=== PATIENT | female | born 1965 | race Caucasian/White ===

== ENCOUNTER 2017-08-08 14:30 | Outpatient (CLI) | payer OTHER ==
--- NOTE | 2017-08-08 17:24 | MRI ---
MRI RIGHT WRIST WITHOUT CONTRAST 08/08/17 HISTORY: N54.12. Pain in wrist. COMPARISON: None available. FINDINGS: BONES: There is mild degenerative disease at the scaphotrapezium trapezoidal joint with subchondral cysts of the distal pole of the scaphoid. There is no acute fracture or malalignment. There is mild narrowing of the radiocarpal joints specifically at the lunate fossa. LIGAMENTS: The scapholunate and the lunotriquetral ligaments are intact. The intrinsic and extrinsic ligaments o f the wrist are intact. TENDONS: There is moderate tendinosis of the flexor carpi ulnaris at the pisiform insertion with distal muscul ar edema along the myotendinous junction. There is a longitudinal split tear of the extensor carpi ul naris without subluxation. Neurovascular bundles are intact. IMPRESSION: 1. 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 2. Moderate degeneration of the central articular disc triangular fibrocartilage without perfora tion. 3. Moderate tendinosis of the flexor carpi ulnaris at the pisiform insertion with myotendinous e davida of the abductor digiti minimi. 4. Small ganglion cyst at the volar aspect of the trapezium. 5. Mild cartilage loss of the radiocarpal joint at the lunate fossa. 6. No evidence of carpal instability. 7. Small subcortical cysts at the first and second metacarpal base indicating degenerative disea se. 8. Interstitial tear of the extensor carpi ulnaris at the ulnar groove. POS: [facility]
--- NOTE | 2017-08-08 17:37 | MRI ---
CERVICAL SPINE MRI NONCONTRAST 08/08/17 CLINICAL HISTORY: Neck pain with numbness. FINDINGS: There is mild multilevel end plate degenerative change with disc space narrowing. No high grade central canal stenosis at C1-2 or C2-3 levels. C3-4: There is disc osteophyte complex with mild narrowing of the central canal and moderate left for aminal narrowing. No high grade right foraminal stenosis. C4-5: There is mild narrowing of the central canal and mild bilateral neural foraminal narrowing as t he result of disc osteophyte complex. C5-6: There is broad based disc osteophyte with a central component effacing the ventral aspect of th e cervical spinal cord with mild narrowing and central canal. There is moderate left and mild right n eural foraminal narrowing. C6-7: Disc osteophyte complex present without high grade central canal or foraminal stenosis. C7-T1: No significant central canal or neural foraminal stenosis. Within limitations, there is no obvious cord signal abnormality although there is a degree of patient motion that limits assessment. Incidental note of partially empty sella. There is mild volume loss o f the imaged posterior fossa contents. IMPRESSION: Multilevel degenerative change of the cervical spine as outlined above. POS: [facility]
== END 2017-08-08 14:31 | disposition home or self-care (01) ==
LOC: SCSMRI 14:30
PROVIDERS: ATTEND Orthopaedic Surgery Hand Surgery
DX: M47.22 Other spondylosis with radiculopathy, cervical region (principal); M19.031 Primary osteoarthritis, right wrist; R60.0 Localized edema; M67.431 Ganglion, right wrist
CPT/HCPCS: 72141

== ENCOUNTER 2017-09-17 10:15 | Outpatient (CLI) | payer OTHER ==
[2017-09-17 14:28] LABS: Anion Gap 15 mmol/L (10-20); BUN (Urea Nitrogen) 16 mg/dL (9.8-20.1); Calc. Creatinine Clearance 0 mL/min (70-130); Calcium 9.8 mg/dL (7.8-10.44); Carbon Dioxide 26 mmol/L (22-29); Chloride 104 mmol/L (98-107); Estimated GFR-MDRD 78; Glucose 83 mg/dL (70-105); Potassium 4.5 mmol/L (3.5-5.1); Sodium 140 mmol/L (136-145)
== END 2017-09-17 10:16 | disposition home or self-care (01) ==
LOC: LABBT 10:15
PROVIDERS: ATTEND Orthopaedic Surgery Hand Surgery
DX: Z01.812 Encounter for preprocedural laboratory examination (principal); S63.591A Other specified sprain of right wrist, initial encounter; G56.01 Carpal tunnel syndrome, right upper limb; M77.8 Other enthesopathies, not elsewhere classified
CPT/HCPCS: 80048; 85730

== ENCOUNTER → 2017-09-18 | Day surgery (SDC) | payer OTHER ==
[2017-09-17 10:42] VITALS: BMI 33.4
[~2017-09-18] MED LIST: Bacitracin Zinc Ointment 30 gm TUBE ONE; Betamet Acet/Betamet Na Ph 30 MG/5 ML VIAL ONE; Bupivacaine PF 0.5% 30 ML VIAL ONE; CEFAZOLIN/Water 2 GM/20 ML SYRINGE ONE; Dexamethasone 20 MG/5 ML VIAL ONE; EPINEPHrine 1 MG/ML AMP ONE; Fentanyl 100 MCG/2 ML VIAL ONE; HYDROcodone/Acetaminophen 5/325 mg Tablet ONE; Ketorolac Tromethamine 30 MG/ML VIAL ONE; Lidocaine 1% (PF) 30 ML VIAL ONE; Lidocaine 1% PF 5 ML VIAL ONE; Metoclopramide HCl 10 MG/2 ML VIAL ONE; Midazolam HCl 2 mg/2 ml Vial ONE; Ondansetron HCl/PF 4 MG/2 ML Vial ONE; Promethazine HCl 25 MG/ML VIAL ONE; Propofol 200 MG/20 ML VIAL ONE; Triamcinolone 40 MG/ML VIAL ONE; diphenhydrAMINE 50 MG/ML VIAL ONE
[2017-09-18 07:14] LABS: #Basophils 0.1 thou/uL (0.0-0.2); #Eosinphils 0.3 thou/uL (0.0-0.7); #Lymphocytes 2.6 thou/uL (1.20-3.40); #Monocytes 0.6 thou/uL (0.11-0.59); #Neutrophils 3.6 thou/uL (1.40-6.50); %Lymphocytes 36.7 % (21.0-51.0); %Monocytes 8.1 % (0.0-10.0); %Neutrophils 50.1 % (42.0-75.0); Hemoglobin 13.8 g/dL (12.0-16.0); Mean Corpuscular HGB CONC 31.8 g/dL (32.0-36.0); Mean Corpuscular Hemoglobin 28.5 pg (27.0-31.0); Mean Corpuscular Volume 89.6 fl (81.0-99.0); Mean Platelet Volume 7.5 fL (7.4-10.4); Platelet Count 230 thou/uL (130-400); RBC Distribution Width 11.9 % (11.5-14.5); Red Blood Cell (RBC) Count 4.84 mill/uL (4.20-5.40); White Blood Cell (WBC) Count 7.2 thou/uL (4.8-10.8)
--- NOTE | 2017-09-18 14:44 | OP ---
DATE OF PROCEDURE: 09/18/2017 SURGEON: Molina Del Castillo M.D. PREOPERATIVE DIAGNOSES: Right wrist triangular fibrocartilage tear, peripheral to extensor carpi danae ris and flexor carpi ulnaris tenosynovitis, synovitis wrist flexors, and Guyon canal level ulnar nerv e compression syndrome along with carpal tunnel syndrome. POSTOPERATIVE DIAGNOSES/FINDINGS: Right wrist triangular fibrocartilage tear, peripheral to extensor carpi ulnaris and flexor carpi ulnaris tenosynovitis, synovitis wrist flexors, and Guyon canal level ulnar nerve compression syndrome along with carpal tunnel syndrome. No instability. PROCEDURE PERFORMED: 1. Right wrist arthroscopic synovectomy. 2. Right wrist open triangular fibrocartilage tear, peripheral, radial to central. 3. Open tenotomy extensor carpal ulnaris. 4. Tenosynovectomy flexor carpi ulnaris. 5. Guyon's canal level ulnar nerve neuroplasty. 6. Lipoma. 7. Carpal tunnel release. 8. Flexor digitorum profundus radical flexor tenosynovectomy to the following digits, index finger, long finger, ring finger, small finger. 9. Flexor digitorum superficialis radical flexor tenosynovectomy to the following digits; small fing er, ring finger, long finger and index finger. COMPLICATIONS: None. TOURNIQUET TIME: Total 65 minutes. INDICATIONS: The patient with wrist pain, ulnar and marked tenderness over the FCU and ECU sheaths, positive for possible peripheral tear on the MRI with no instability or ligament tear distal ulna jenny nt and clinical as well as EMG carpal tunnel and clinical Guyon's canal compression that failed conse rvative treatment. DESCRIPTION OF PROCEDURE: After successful general LMA technique, the limb was prepped and draped. The patient had the time out done appropriately. The limb was placed in inline traction 10 pounds, w ell-padded for wrist arthroscopy first. Standard 3, 4 and 6 ports were established. Panoramic view revealed synovitis even on the radial side so a complete wrist arthroscopic synovectomy perform ed. Next, we visualized the tear, debrided the edges and noticed that it was through and through ove r approximately 6-7 mm area, so we removed the arthroscope and inspecting the intercarpal areas and t he mid carpal and there was no evidence of ligament tear or significant chondritis. I then inflated the tourniquet with arm in an in-line traction after exsanguinating the limb to 250 mmHg pressure. I made a 4 cm incision over the extensor carpi ulnaris the extensor digit minimi. We released the ext ensor minimi and opened the wrist joint to reveal the tear. The tear had been prepared so we placed 4 sutures, 4-0 Prolene in figure of eight pattern in the tear and tied them and it was secure. We then closed the capsule with 2-0 Vicryl interrupted [id number] pattern, closed the sheath lara k over the tendon, abduct the extensor digit minimi with a 4-0 Monocryl and then moved our incision o mary the sheath 2 cm to expose the extensor carpi ulnaris tendon. There was minimal tenosynovitis and tenotomy was performed to free up this. Then we repaired the subsheath as well as the retinaculum u sing first 2-0 Vicryl, then 4-0 Monocryl respectively. We closed subcutaneous skin with 4-0 Monocryl interrupted and then closed the epidermis on this side with 4-0 nylon. We then removed the wrist towel, the traction, and outlined a J-shaped incision to approach the flexo r carpi ulnaris Guyon canal at the wrist and the carpal tunnel. This incision was carried through sk in and subcutaneous tissues down to the level of exposing the flexor carpi radialis ulnaris tendon an d we visualized the neurovascular bundle 3 cm proximal to the volar wrist flexion crease. We then re leased the fascia over this all the way into the very thick band over from the pisiform towards the h amate but here, just underneath this and distal in zone 2 of the ulnar nerve was a lipoma that was 2 cm by approximately 12 mm. We gently excised this lipoma maintaining the vasculature. Then we compl eted the release of the fascia distal until we could see branching of the ulnar nerve and they were f ree without abnormality. No ganglion was seen. We then moved our lateral side of the fascia, 2 cm radial, opened the fascia of the carpal tunnel and here, the whole distal one half of the median nerve was stippled, red and flattened, but not quite h ourglass formation in the frontal plane. In the saggital plane, hourglass formation , but it wa s very stipled, red and flattened. We then completed the carpal tunnel release, all the branches ner ve was spared as was the arch. We released the palmar fascia throughout the entire volar wrist and i ncision. Before we released the tourniquet, we lifted up flexor tendon to find extensive tenosynovit is, so the flexor profundus to the index, long, ring and small finger underwent radical flexor tenosy novectomy and the flexor superficialis to the small, ring. index and long underwent radical flexor te nosynovectomy. At that point, we sent a specimen. The tourniquet was deflated. We obtained hemost asis, included ligation of 2 bleeders that were branches to the skin of the ulna circulation, hemosta sis was completely obtained. We closed the palmar wound with interrupted 4-0 nylon simple pattern. Bulky dressing was applied and then a sugar tong splint. The patient left the operation with the spe cimen of the lipoma sent as well as a sample of the flexor digitorum profundus superficialis tenosyno vitis to the lab to rule out inflammatory disorder.
== END ==
LOC: SDC 05:51
PROVIDERS: ATTEND Orthopaedic Surgery Hand Surgery
PROC: 0LB50ZZ Excision of Right Lower Arm and Wrist Tendon, Open Approach (ICD-10-PCS; principal; 2017-09-18)
PROC: 01N50ZZ Release Median Nerve, Open Approach (ICD-10-PCS; principal; 2017-09-18)
PROC: 0LN50ZZ Release Right Lower Arm and Wrist Tendon, Open Approach (ICD-10-PCS; principal; 2017-09-18)
PROC: 0RBN0ZZ Excision of Right Wrist Joint, Open Approach (ICD-10-PCS; principal; 2017-09-18)
PROC: 01N40ZZ Release Ulnar Nerve, Open Approach (ICD-10-PCS; principal; 2017-09-18)
PROC: 0LB70ZZ Excision of Right Hand Tendon, Open Approach (ICD-10-PCS; principal; 2017-09-18)
DX: S63.591A Other specified sprain of right wrist, initial encounter (principal); G56.01 Carpal tunnel syndrome, right upper limb; M65.831 Other synovitis and tenosynovitis, right forearm; G56.20 Lesion of ulnar nerve, unspecified upper limb; Z79.899 Other long term (current) drug therapy; Z88.1 Allergy status to other antibiotic agents; Z88.5 Allergy status to narcotic agent; Z88.8 Allergy status to other drugs, medicaments and biological substances; Z91.018 Allergy to other foods; Z98.890 Other specified postprocedural states
CPT/HCPCS: 36416; 85025; 88304; 88305; 96372; 96374; J0131; J0171; J0702; J1100; J1200; J1885; J2001; J2250; J2405; J2550; J2704; J2765; J3010; J3301; S0020

== ENCOUNTER 2018-01-26 22:26 | Emergency (ER) | payer OTHER ==
[2018-01-26] MEDS ORDERED: Ondansetron ODT 4 MG TAB ONE (22:31)
[2018-01-26] MEDS ORDERED: Lorazepam 1 MG TAB ONE (23:19)
--- NOTE | 2018-01-26 23:28 | RAD ---
AP VIEW CHEST: 01/26/18 HISTORY: Chest pain. AP view chest is obtained on 01/26/18. Comparison made to previous exam from 12/28/14. AP view chest demonstrates mild pulmonary vascular congestion. No evidence of effusions, pneumonia or pneumothorax seen. IMPRESSION: Unremarkable AP view chest. POS: [facility]
[2018-01-26 23:36] LABS: #Basophils 0.1 thou/uL (0.0-0.2); #Eosinphils 0.3 thou/uL (0.0-0.7); #Lymphocytes 2.5 thou/uL (1.20-3.40); #Monocytes 0.7 thou/uL (0.11-0.59); #Neutrophils 4.8 thou/uL (1.40-6.50); %Basophils 1.1 % (0.0-1.0); %Eosinophils 3.3 % (0.0-10.0); %Lymphocytes 30.3 % (21.0-51.0); %Monocytes 7.8 % (0.0-10.0); %Neutrophils 57.5 % (42.0-75.0); Hemoglobin 14.3 g/dL (12.0-16.0); Mean Corpuscular HGB CONC 32.9 g/dL (32.0-36.0); Mean Corpuscular Hemoglobin 28.4 pg (27.0-31.0); Mean Corpuscular Volume 86.4 fl (81.0-99.0); Mean Platelet Volume 7.7 fL (7.4-10.4); Platelet Count 223 thou/uL (130-400); RBC Distribution Width 12.1 % (11.5-14.5); Red Blood Cell (RBC) Count 5.05 mill/uL (4.20-5.40); White Blood Cell (WBC) Count 8.3 thou/uL (4.8-10.8)
[2018-01-26 23:57] LABS: ALT (SGPT) 10 U/L (8-55); AST (SGOT) 15 U/L (5-34); Alkaline Phosphatase 104 U/L (40-150); Anion Gap 9 mmol/L (10-20); BUN (Urea Nitrogen) 21 mg/dL (9.8-20.1); Bilirubin, Total 0.2 mg/dL (0.2-1.2); Calc. Creatinine Clearance 0 mL/min (70-130); Calcium 9.3 mg/dL (7.8-10.44); Carbon Dioxide 26 mmol/L (22-29); Chloride 109 mmol/L (98-107); Estimated GFR-MDRD 74; Globulin 2.9 g/dL (2.4-3.5); Glucose 122 mg/dL (70-105); Lipase 16 U/L (8-78); Potassium 3.7 mmol/L (3.5-5.1); Protein, Total 6.9 g/dL (6.0-8.3); Sodium 140 mmol/L (136-145)
[2018-01-27 00:04] LABS: CKMB 1.1 ng/mL (0-6.6); Troponin I Less than 0.010 ng/mL (< 0.028)
== END 2018-01-27 01:20 | disposition home or self-care (01) ==
LOC: ERS 22:26
DX: F41.9 Anxiety disorder, unspecified (principal); R11.2 Nausea with vomiting, unspecified; I10 Essential (primary) hypertension; Z87.891 Personal history of nicotine dependence; Z79.899 Other long term (current) drug therapy
CPT/HCPCS: 36415; 71045; 80053; 82553; 83690; 84484; 85025; 93005; Q0162

== ENCOUNTER 2018-12-06 04:21 | Observation (INO) | payer OTHER ==
[2018-12-06] MEDS ORDERED: diphenhydrAMINE 50 MG/ML VIAL ONE (04:39)
[2018-12-06] MEDS ORDERED: Dexamethasone 10 MG/ML VIAL ONE (04:39)
[2018-12-06] MEDS ORDERED: Famotidine/PF 20 mg/2ml Vial ONE (05:30)
[2018-12-06] MEDS ORDERED: Lidocaine 2% 10 ML INJ ONE ×2 (05:45→05:47)
[2018-12-06] MEDS ORDERED: EPINEPHrine 1 MG/10 ML Abboject SYRINGE ONE (05:45)
[2018-12-06] MEDS ORDERED: EPINEPHrine 1 MG/ML AMP ONE (05:48)
[2018-12-06 05:52] LABS: #Basophils 0.2 thou/uL (0.0-0.2); #Eosinphils 0.2 thou/uL (0.0-0.7); #Lymphocytes 1.7 thou/uL (1.20-3.40); #Monocytes 0.5 thou/uL (0.11-0.59); #Neutrophils 4.7 thou/uL (1.40-6.50); %Basophils 2.1 % (0.0-1.0); %Eosinophils 2.9 % (0.0-10.0); %Lymphocytes 23.7 % (21.0-51.0); %Monocytes 6.8 % (0.0-10.0); %Neutrophils 64.5 % (42.0-75.0); Hemoglobin 13.2 g/dL (12.0-16.0); Mean Corpuscular HGB CONC 32.6 g/dL (32.0-36.0); Mean Corpuscular Hemoglobin 27.8 pg (27.0-31.0); Mean Corpuscular Volume 85.4 fL (78.0-98.0); Mean Platelet Volume 7.3 fL (7.4-10.4); Platelet Count 226 thou/uL (130-400); RBC Distribution Width 12.1 % (11.5-14.5); Red Blood Cell (RBC) Count 4.75 mill/uL (4.20-5.40); White Blood Cell (WBC) Count 7.3 thou/uL (4.8-10.8)
[2018-12-06 06:04] LABS: ALT (SGPT) 18 U/L (8-55); AST (SGOT) 14 U/L (5-34); Albumin 3.7 g/dL (3.5-5.0); Alkaline Phosphatase 105 U/L (40-150); Anion Gap 12 mmol/L (10-20); BUN (Urea Nitrogen) 17 mg/dL (9.8-20.1); Bilirubin, Total 0.2 mg/dL (0.2-1.2); Calc. Creatinine Clearance 0 mL/min (70-130); Calcium 9.2 mg/dL (7.8-10.44); Carbon Dioxide 25 mmol/L (22-29); Chloride 109 mmol/L (98-107); Estimated GFR-MDRD 70; Glucose 99 mg/dL (70-105); Potassium 4.2 mmol/L (3.5-5.1); Protein, Total 6.7 g/dL (6.0-8.3); Sodium 142 mmol/L (136-145)
--- NOTE | 2018-12-06 07:53 | RAD ---
2 VIEWS SOFT TISSUES NECK: Date: 12/06/18 INDICATION: Recurrent uvulitis with upper respiratory tract symptoms. FINDINGS: Prevertebral soft tissues are normal appearing. Visualized aspects of the aryepiglottic folds appear within normal limits. Tracheal air column appears within normal limits. Lung apices are clear. IMPRESSION: Normal. POS: [facility]
[2018-12-06] MEDS ORDERED: Ondansetron PF 4 MG/2 ML Vial IVP PRN (09:01)
[2018-12-06] MEDS ORDERED: Ondansetron ODT 4 MG TAB PO PRN (09:01)
[2018-12-06 09:26] VITALS: BMI 34.2
[2018-12-06] MEDS ORDERED: guaiFENesin/Dextromethorphan 10 ML UDCUP PO PRN (10:35)
--- NOTE | 2018-12-06 11:04 | CT ---
FCT of the paranasal sinuses: 12/06/2018 COMPARISON: None HISTORY: Congestion, cough, mucus production TECHNIQUE: Axial CT imaging through the paranasal sinuses at 2.5 mm intervals with coronal and sagitt al reformatted imaging FINDINGS: Limited assessment of the brain parenchyma appears grossly unremarkable, only partially elza ged on this examination. The frontal sinuses are clear bilaterally. There is mild anterior ethmoid air cell opacification on t he right. There is moderate opacification of the anterior and mid left-sided ethmoid air cells. No si gnificant mucosal thickening is seen involving either sphenoid sinus and the imaged portions of the m astoid air cells appear grossly unremarkable. There is circumferential mucosal thickening involving the maxillary sinus on the left. There is soft tissue opacification involving the infundibulum on the left as well. There is mild leftward nasal sep ivan deviation. There is mucosal thickening involving the superior aspect of the right sphenoid sinus, best seen on c oronal imaging, with soft tissue opacification of the infundibulum on the right. No air-fluid levels are noted within the paranasal sinuses. The retroantral fat and parapharyngeal fat appears clear bilaterally. Osseous structures demonstrate no acute findings. IMPRESSION: Paranasal sinus disease, left greater than right.
--- NOTE | 2018-12-06 11:10 | HP ---
CHIEF COMPLAINT: Difficulty with breathing. HISTORY OF PRESENT ILLNESS: This patient is a 53-year-old female, who has minimal past medical history primarily including hypertension, who presented to the [facility] ER initially. The patient reports that over the last week to week and a half she has had some sore throat, cough productive of a dark brown discolored sputum. She has had a bit of a waxing and waning course with this and ultimately traveled out of town and when she came back, she was awakened at night with difficulty breathing, feeling as though her throat was swollen. She has had some associated headache and her nose has been running to the degree that she felt like she had a raw area on her upper lip, although she does have a history of herpes simplex infections in the past in that same area on the vermilion border of the lip. PHYSICAL EXAMINATION: VITAL SIGNS: Temperature is 99.3, pulse 83, respirations 38, O2 saturation 93% on room air, and blood pressure is 127/57. GENERAL APPEARANCE: Slightly obese, age-appropriate female. She is fairly somnolent, but awakens and converses. She appears to have some discomfort with swallowing and has a bit of an altered voice, slightly higher pitch than expected. HEENT: PERRL. She has a group of vesicles on the right upper lip below the nose, it stops at the midline. They are erythematous. Oropharyngeal exam reveals generous tongue. She has some uvular edema without significant erythema. No evidence of specific masses or abscesses when she is able to relax her tongue adequately. She does have a patent airway. NECK: Supple and symmetric without lymphadenopathy, JVD, bruit, or thyromegaly. HEART: Regular without murmurs, gallops, or rubs. LUNGS: Clear to auscultation bilaterally with good chest wall expansion or exchange. ABDOMEN: Soft, nontender, and nondistended. EXTREMITIES: Notable for no edema. LABORATORY DATA: White count is 7.3, hemoglobin is 13.2. Chemistries are normal. Strep screen is negative. Soft tissue x-ray of the neck is normal. IMPRESSION AND PLAN: Pharyngitis with potentially threatening the airway. The patient is placed in the IMCU. She already had steroids with racemic epinephrine, Benadryl, and Pepcid administered at the emergency department. There was concern that she was having angioedema. She does have a number of allergies. However, this sounds very much like she is having more of an infectious process that is ultimately culminated in some pharyngeal edema. We will obtain chest x-ray and a CT scan of the sinuses. We will continue with steroids and also discussed with her the need to use some antibiotic. She is comfortable using cephalosporins, so we will keep her on some Rocephin for now. We will also continue to try to suppress the cough without using sedating medications in order to try to minimize the trauma on the pharynx with the coughing. I do not see an indication to consult ENT at this point. She will have a Pulmonary/Critical Care consult by virtue of being in the [facility]. Job ID: [id number]
--- NOTE | 2018-12-06 11:20 | RAD ---
PORTABLE CHEST 1 VIEW: Date: 12/06/18 Time: 1020 hours HISTORY: Cough. FINDINGS: Comparison made with exam of 01/26/18. The heart size is normal. The lungs are well expanded without focal areas of consolidation, pneumotho rax, elton pulmonary edema, or pleural effusions. IMPRESSION: No acute process. POS: [facility]
[2018-12-06] MEDS ORDERED: methylPREDNISolone Sod Succ 40 MG VIAL IVP SCH (12:00)
[2018-12-06] MEDS ORDERED: Metoclopramide HCl 10 MG/2 ML VIAL IVP SCH (13:15)
[2018-12-06] MEDS ORDERED: diphenhydrAMINE 50 MG/ML VIAL IVP SCH (13:15)
[2018-12-06] MEDS: cefTRIAXone\\ROCEPHIN 2 GM in Sodium Chloride 0.9% 100 ML IVPB SCH ×2 (14:00→16:33)
[2018-12-06] MEDS ORDERED: Acetaminophen 325 MG TAB PO PRN (14:04)
[2018-12-06 14:45] LABS: Bilirubin Negative (Negative); Blood, Urine Moderate (Negative); Clarity CLEAR (Clear); Glucose, Urine (Dipstick) Negative (Negative); Leukocyte Negative (Negative); Nitrite Negative (Negative); Protein, Urine (Dipstick) Negative (Neg-Trace); Specific Gravity, Urine 1.016 (1.002-1.036); Urobilinogen 0.2 mg/dL (0.2-1.0); pH, Urine 7.5 (5.0-9.0)
[2018-12-06 14:47] LABS: Bacteria/HPF None Seen HPF (None Seen); Hyaline Casts/LPF 0-3 HYALINE CAST LPF (0-3 Hyaline); Pathc Cast-AUWi Flag 0.13 (0-2.49); Squamous Epithelial 0-3 HPF (0-3); WBC/HPF 0-3 HPF (0-3)
[2018-12-06] MEDS: Acyclovir 400 mg Tablet PO SCH ×2 (16:27→20:38)
[2018-12-06] MEDS: Ibuprofen 600 MG TAB PO PRN (18:33)
--- NOTE | 2018-12-06 18:55 | CON ---
DATE OF CONSULTATION: 12/06/2018 SERVICE: Pulmonary Medicine. REASON FOR CONSULT: CU patient. HISTORY OF PRESENT ILLNESS: The patient is a very pleasant 53-year-old white female with past medical history significant for essentially nothing. She presented to the emergency department after a 2-week history of subjective fever, myalgia, malaise, nausea, vomiting, three days of diarrhea, and cough with congestion. She also had a breakout of her herpes, which is long-standing. She had a sick contact in a son. She denies any current fevers or chills. She presented to the emergency department because she started having increasing swelling in the back of the throat. The ER physician evaluated her and I believe that there was some angioedema of the uvula. As such, she was closely observed and treated for that with steroids, Pepcid, Benadryl, and epinephrine. Ultimately, she was tucked into the [facility], where the swelling of the uvula has significantly improved. She has never had an episode of this happened before. She had some recent travel to and from [place] for business. PAST MEDICAL HISTORY: 1. Hypertension. 2. Herpes simplex. PAST SURGICAL HISTORY: section x1. SOCIAL HISTORY: She has rare alcohol use. She has a remote history of smoking , but quit over 10 years ago. She does not use any illicit drugs. She has no exposure to chemicals, dust, asbestos, or tuberculosis. FAMILY HISTORY: Noncontributory. ALLERGIES: BROMFED, CODEINE, DIAZEPAM, MORPHINE, PHENYLEPHRINE, PINEAPPLE, PSEUDOEPHEDRINE, LEVOFLOXACIN, HYDROCODONE, TERBUTALINE, AND TRAMADOL. MEDICATIONS: List of her inpatient medications was reviewed. There is some small modifications made. REVIEW OF SYSTEMS: General, head, ears, eyes, nose, throat, cardiovascular, respiratory, GI, , musculoskeletal, neurologic, and skin are negative except as mentioned in the HPI. PHYSICAL EXAMINATION: VITAL SIGNS: Afebrile, pulse 83, blood pressure 127/57, respirations 38, and saturation 93% on room air. GENERAL: The patient is awake and alert, in no apparent distress. HEENT: She has a Mallampati of 3. I can clearly identify the uvula, which does not have any current swelling or angioedema present. She has grouped vesicles on the top lip. LUNGS: Decent air entry. There are no crackles present. Rhonchi are there. No prolonged expiratory phase or wheezing appreciated. HEART: Normal rate, regular. ABDOMEN: Soft, nontender, and nondistended. Bowel sounds are positive. MUSCULOSKELETAL: No cyanosis or clubbing. There is no pitting in the bilateral lower extremities. NEUROLOGIC: Grossly nonfocal. LABORATORY DATA: WBC is perfectly normal with a normal differential. Basic metabolic profile and liver function studies are also perfectly normal without acute abnormalities. Group A Streptococcus screen from the throat is negative. Culture is currently pending. IMAGING DATA: 1. CT of the sinuses demonstrates paranasal sinus disease, left greater than right. 2. Chest x-ray demonstrates no acute cardiopulmonary abnormality. 3. X-ray of the soft tissues of the neck demonstrates no evidence of epiglottitis. ASSESSMENT: 1. Possible angioedema of the posterior oropharynx, resolving. 2. Viral prodrome. 3. Herpes outbreak. 4. Possible sinusitis. DISCUSSION AND PLAN: I will initiate acyclovir for the next 24 hours to see if this helps with possible viremia associated with herpes outbreak. Agree with the current orders. We will give her a laboratory holiday in the morning as her CBC and CMP were perfectly unremarkable today. At this point, she is stable for transition to the medical unit. If she has recrudescence in swelling in the back of her throat, she will certainly notify us and we may need to move her back to the IMCU, or the ICU to protect her airway. Pulmonary will continue to follow for now. 70 minutes have been devoted to this patient in various activities. I personally reviewed all imaging studies and laboratory data noted within this document. For fifty percent of this time, I was interacting with the patient at the bedside or coordinating care with the care team. For the remainder of the time I was immediately available to the patient in the hospital unit. Job ID: [id number] MTDD
--- NOTE | 2018-12-06 18:59 | HP ---
CHIEF COMPLAINT: "I couldn't breathe." HISTORY OF PRESENT ILLNESS: The patient is a pleasant 53-year-old female with past medical history of hypertension and anxiety, who presented to the hospital with complaints of difficulty breathing. The patient states that over the past 10 days, she has had a course of intermittent sore throat along with productive cough of brownish sputum. The course seems to have been waxing and waning, and she did not feel as if she needed to seek medical attention. She reports no fevers or systemic symptoms of nausea, vomiting or shaking chills. She was even able to travel to [place] on business this past week. When she got home, however, she began to feel worse as far as her sore throat and cough. When she went to bed last night, she reports that she woke up gasping and felt as if there was so much mucus and phlegm and swelling in the back of her throat, that she could not get a breath of air in. She presented to the [facility] ER for further workup and treatment. There was significant concern for compromise of her airway given her complaints and pharyngeal edema. She was given dexamethasone intramuscular, along with epinephrine injection. She was also given IV Benadryl and Pepcid. She was given breathing treatment with racemic epinephrine, and transferred to the [facility] for higher level of care. Her soft tissue neck x-ray was normal, and her tracheal air column appeared within normal limits. Upon my interview, the patient is resting comfortably, able to swallow and converse. She states that her presenting symptoms are improving. REVIEW OF SYSTEMS: The patient has reported loose stools since her illness has started, and also reported some intermittent swelling behind her knees, that has also resolved. Otherwise, 12-point review of systems performed and is negative other than stated above. ALLERGIES: BRETHINE, BROMPHENIRAMINE, CODEINE SULFATE, DIAZEPAM, LEVAQUIN, MORPHINE, PHENYLEPHRINE, PINEAPPLE EXTRACT, AND PSEUDOEPHEDRINE. HOME MEDICATIONS: 1. Metoprolol succinate 50 mg tab one tab p.o. daily. 2. Alprazolam 0.5 mg tab p.r.n. anxiety. PAST MEDICAL/SURGICAL HISTORY: Hypertension, anxiety, history of section x1, and history of right wrist surgery. SOCIAL HISTORY: The patient is a former smoker and quit 10 years ago. She uses alcohol occasionally. Denies any illicit drug use. 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 FAMILY HISTORY: Noncontributory. CODE STATUS: Full code. PHYSICAL EXAMINATION: GENERAL: The patient is a female, who appears her stated age, appears ill. HEENT: Head, atraumatic and normocephalic. Upon exam of the oral cavity, the patient does have significant pharyngeal edema and edema noted of the uvula. She has some lip edema secondary to herpes labialis. NECK: No lymphadenopathy. Her trachea is midline. No JVD. CV: S1 and S2. Regular rate and rhythm. No appreciable murmurs, rubs or gallops. LUNGS: Regular respiratory rate and pattern. Clear to auscultation bilaterally. ABDOMEN: Positive bowel sounds. Soft and nontender. EXTREMITIES: +2 DP pulses bilaterally. No edema. SKIN: Warm and dry. No rashes. VITAL SIGNS: Blood pressure 128/57; pulse 90s, sinus rhythm; O2 saturation is 98% on room air; respirations are 25. LABORATORY DATA: White blood cell count 7.3, hemoglobin 13.2, hematocrit 40.6, and MCV 85.4. Sodium 142, potassium 4.2, chloride 109, creatinine 0.84, and GFR 70. Urinalysis shows a moderate amount of blood, otherwise no nitrite, bacteria, leukocyte esterase or white blood cells. Her respiratory viral nasopharyngeal swab screen shows no evidence of influenza A, H1a, H3 or B. No RSV detected. Her initial strep screen was negative. IMAGING DATA: Soft tissue neck x-ray was normal. CT scan of the sinuses showed some paranasal sinus disease, left greater than right, with circumferential mucosal thickening involving the maxillary sinus in the left. ASSESSMENT: 1. Pharyngitis and cough. Unclear infectious etiology at this time, resulting in significant soft tissue edema of the uvula and soft palate, airway has remained patent thus far. 2. Herpes labialis. 3. Hypertension. 4. Anxiety. PLAN: We will consult Dr. Rodriguez as the patient is currently in the [facility]. We will provide empiric antibiotic coverage with IV Rocephin. We will continue with steroids and supportive care, and continue to monitor the patient's airway closely. We will add a cough suppressant, and start acyclovir. We will continue to monitor the patient closely for the next 24 hours. Throat and blood cultures pending. Further recommendations based on hospital course. Care was discussed with Dr. Hernandez. Job ID: [id number] [facility]adwo
[2018-12-06] MEDS: Famotidine/PF 20 mg/2ml Vial SLOW IVP SCH (20:38)
[2018-12-06] MEDS: predniSONE 20 MG TAB PO SCH (20:39)
[2018-12-07] MEDS: Acyclovir 400 mg Tablet PO SCH ×2 (00:34→08:23)
[2018-12-07] MEDS: Ibuprofen 600 MG TAB PO PRN ×2 (00:42→08:23)
[2018-12-07] MEDS: predniSONE 20 MG TAB PO SCH (08:23)
[2018-12-07] MEDS: Famotidine/PF 20 mg/2ml Vial SLOW IVP SCH (08:24)
[2018-12-07 11:51] VITALS: BP 148/70; TEMP 98.6
--- NOTE | 2018-12-07 17:58 | DIS ---
DATE OF ADMISSION: 12/06/2018 DATE OF DISCHARGE: 12/07/2018 ALLERGIES: 1. BRETHINE. 2. BROMPHENIRAMINE. 3. CODEINE SULFATE. 4. DIAZEPAM. 5. LEVAQUIN. 6. MORPHINE. 7. PHENYLEPHRINE. 8. PINEAPPLE EXTRACT. 9. PSEUDOEPHEDRINE. CHIEF COMPLAINT: Difficulty breathing. FINAL DIAGNOSES: 1. Soft tissue swelling and edema of the oropharynx/soft palate/uvula in the setting of herpes labialis outbreak and sinusitis, resolved. 2. Herpes labialis outbreak with viremia. 3. Sinusitis. 4. Hypertension. 5. Anxiety. PROCEDURE PERFORMED: None. LABORATORY RESULTS: White blood cell count 7.3, hemoglobin 13.2, hematocrit 40.6, and MCV 85.4. Sodium 142, potassium 4.2, chloride 109, creatinine 0.84, and GFR 70. Urinalysis shows moderate amount of blood, otherwise no nitrite, bacteria, leukocyte esterase, or white blood cells. Respiratory viral nasopharyngeal swab screen negative for influenza A, H1a, H3, or B. No RSV detected. Strep screen negative. IMAGING RESULTS: Soft tissue neck x-ray was normal. CT scan of the sinuses showed some paranasal sinus disease, left greater than right with circumferential mucosal thickening involving the maxillary sinus in the left. CONSULTATIONS: Dr. Rodriguez of Pulmonology/Critical Care. HOSPITAL COURSE: The patient is a pleasant 53-year-old female with past medical history significant for hypertension and anxiety, who presented to the hospital with complaints of difficulty breathing. The patient states that over the past 10 days, she had a course of intermittent sore throat along with a productive cough of brown sputum. She also had associated myalgias. The course seems to have been waxing and waning, and she did not feel as if she needed to seek medical attention. She reports no fever or systemic symptoms of nausea, vomiting, or shaking chills. Just prior to the onset of her symptoms, she was also suffering from a herpes labialis outbreak, which has been a longstanding problem for her. The patient felt well enough to travel to [place] past week on business; however, when she got home, she began to feel worse in regard to her sore throat and cough. On the night prior to her admission, she reports that she woke up gasping and felt as if there was so much mucus and swelling in the back of her throat that she could not get a breath of air in. She presented to the [facility] ER for further workup and treatment. There was significant concern for compromise of her airway given her complaints of pharyngeal edema. She was given dexamethasone intramuscular along with epinephrine injection. She was also given IV Benadryl and Pepcid. She was given breathing treatment with racemic epinephrine and transferred to the [facility] for higher level of care. At our facility, the patient was treated with IV Rocephin along with acyclovir. She was given oral steroids. Her presenting symptoms of soft tissue swelling of her throat and uvula have completely resolved by this morning. She continues to have a mild cough. She has ambulated the halls without issue today. She denies any chest pain or shortness of breath. She has had no nausea or vomiting. She has advanced her diet and is now tolerating full diet without issue. PHYSICAL EXAMINATION: VITAL SIGNS: Blood pressure 114/57, O2 saturation 94% on room air, pulse 77. The patient is afebrile. GENERAL: The patient is a female, who appears her stated age, in no acute distress. HEENT: Head, atraumatic and normocephalic. Upon exam of the oral cavity this morning, her pharyngeal edema and edema of the uvula have completely resolved. She has a herpes labialis lesion on the left upper vermilion border. NECK: No lymphadenopathy. Trachea is midline. No JVD. CV: S1 and S2. Regular rate and rhythm. No appreciable murmurs, rubs, or gallops. LUNGS: Regular respiratory rate and pattern. Clear to auscultation bilaterally. ABDOMEN: Positive bowel sounds. Soft and nontender. EXTREMITIES: +2 DP pulses bilaterally. No edema. SKIN: Warm and dry. No rashes. CONDITION AT DISCHARGE: Stable. DISCHARGE MEDICATIONS: 1. Alprazolam 0.5 mg tablet one tablet p.o. p.r.n. anxiety. 2. Amlodipine 5 mg tablet one tablet p.o. q.h.s. New medications will be, 1. Acyclovir 400 mg tablet one tablet p.o. 5 times daily for 5 days. 2. Doxycycline 100 mg capsule, 100 mg p.o. q.12 hours x7 days. 3. Medrol Dosepak to be taken as directed. 4. Continue Robitussin DM over the counter. DISCHARGE DISPOSITION: Home. PLAN: The patient will continue her above medications as directed. Her presenting symptoms have completely resolved at this time. She will return to the hospital with any return of symptoms. She has been counseled on the findings of her stay and all questions answered to the patient's satisfaction. Care was discussed with Dr. Hernandez, who agrees. Job ID: [id number]
[2018-12-09 21:08] LABS: HSV 2 - DNA Negative (Negative)
== END 2018-12-07 13:54 | disposition home or self-care (01) ==
LOC: SCSER 04:21 → IMCU/EMU 06:47 → INTOOBSV 06:47 → 3SE 16:06
PROVIDERS: ADMIT Hospitalist; ATTEND Hospitalist
DX: J02.9 Acute pharyngitis, unspecified (principal); B00.1 Herpesviral vesicular dermatitis; J32.9 Chronic sinusitis, unspecified; K12.2 Cellulitis and abscess of mouth; I10 Essential (primary) hypertension; F41.9 Anxiety disorder, unspecified; B95.61 Methicillin susceptible Staphylococcus aureus infection as the cause of diseases classified elsewhere; Z87.891 Personal history of nicotine dependence; Z88.1 Allergy status to other antibiotic agents; Z88.5 Allergy status to narcotic agent; Z88.8 Allergy status to other drugs, medicaments and biological substances; Z79.899 Other long term (current) drug therapy
CPT/HCPCS: 36415; 70360; 71045; 80053; 81001; 85025; 87040; 87070; 87077; 87081; 87186; 87430; 87529; 87633; 96372; 96374; 96375; 96376; G0378; J0171; J0696; J1100; J1200; J2001; J2765; J2920; J7050; S0028

== ENCOUNTER 2019-01-03 01:39 | Inpatient (IN) | payer OTHER ==
[2019-01-03] MEDS ORDERED: methylPREDNISolone Sod Succ/PF 125 MG/2 ML VIAL ONE (02:02)
[2019-01-03] MEDS ORDERED: Famotidine/PF 20 mg/2ml Vial ONE ×2 (02:02→14:02)
[2019-01-03] MEDS ORDERED: diphenhydrAMINE 50 MG/ML VIAL ONE (02:02)
[2019-01-03 02:08] LABS: #Basophils 0.1 thou/uL (0.0-0.2); #Eosinphils 0.4 thou/uL (0.0-0.7); #Lymphocytes 2.3 thou/uL (1.20-3.40); #Monocytes 0.7 thou/uL (0.11-0.59); #Neutrophils 7.8 thou/uL (1.40-6.50); %Basophils 1.1 % (0.0-1.0); %Eosinophils 3.9 % (0.0-10.0); %Lymphocytes 20.2 % (21.0-51.0); %Monocytes 6.2 % (0.0-10.0); %Neutrophils 68.6 % (42.0-75.0); Hemoglobin 14.8 g/dL (12.0-16.0); Mean Corpuscular Hemoglobin 28.6 pg (27.0-31.0); Mean Corpuscular Volume 86.5 fL (78.0-98.0); Platelet Count 229 thou/uL (130-400); RBC Distribution Width 12.3 % (11.5-14.5); Red Blood Cell (RBC) Count 5.18 mill/uL (4.20-5.40); White Blood Cell (WBC) Count 11.4 thou/uL (4.8-10.8)
[2019-01-03 02:26] LABS: ALT (SGPT) 18 U/L (8-55); AST (SGOT) 19 U/L (5-34); Albumin 4.1 g/dL (3.5-5.0); Alkaline Phosphatase 90 U/L (40-150); Anion Gap 13 mmol/L (10-20); BUN (Urea Nitrogen) 16 mg/dL (9.8-20.1); Bilirubin, Total 0.3 mg/dL (0.2-1.2); Calc. Creatinine Clearance 0 mL/min (70-130); Calcium 9.8 mg/dL (7.8-10.44); Carbon Dioxide 28 mmol/L (22-29); Chloride 104 mmol/L (98-107); Estimated GFR-MDRD 63; Globulin 3.1 g/dL (2.4-3.5); Glucose 129 mg/dL (70-105); Lipase 8 U/L (8-78); Potassium 4.1 mmol/L (3.5-5.1); Protein, Total 7.2 g/dL (6.0-8.3); Sodium 141 mmol/L (136-145)
[2019-01-03] MEDS ORDERED: Fentanyl 100 MCG/2 ML VIAL ONE ×4 (02:46→14:02)
[2019-01-03] MEDS ORDERED: Lidocaine Viscous Sol 2% 15 ml UD Cup ONE (04:01)
[2019-01-03] MEDS ORDERED: Benzocaine 20% Spray 60 ML CAN ONE (04:01)
--- NOTE | 2019-01-03 07:55 | CT ---
CT OF THE ABDOMEN AND PELVIS WITH IV CONTRAST: INDICATION: History of epigastric abdominal pain and vomiting. COMPARISON: CT of the abdomen and pelvis dated 03/08/2012. FINDINGS: ABDOMEN: There is mild bibasilar atelectasis. There is an enlarging left adrenal nodule measuring 1.7 cm where previously it measured 1.4 cm. Righ t adrenal gland is normal appearing. Pancreas and spleen are normal appearing. No focal hepatic lesion is evident. There is a small hiatal hernia. The stomach and duodenum are normal in caliber. There are dilated l oops of jejunum and proximal ileum within the central abdomen. There is tethering of the dilated loo ps of small bowel to an entry and exit point in the left upper quadrant of the abdomen with slight sw irling of the mesenteric vessels. It was not present on the prior exam and is suspicious for a small mild internal volvulus of the mesentery. The involved bowel loops are only mildly dilated. The dis ivan small bowel within the lower abdomen and pelvis is largely decompressed. There is fecal material and gas present within the colon. Normal suspected appendix in the right lower quadrant of the abdo men. There is a small amount of free fluid in the pelvis. There are bilateral ligation clips. The bladde r, rectum, and perirectal soft tissues are unremarkable. There is scattered degenerative and osteoar thritic change. IMPRESSION: 1. Dilated loops of small bowel within the central abdomen with decompressed loops both proximal and distal to these dilated loops with swirling of the mesentery, left of midline in the left upper abdo men, suspicious for a small internal volvulus. The lead points of the dilated bowel is seen within t he left upper quadrant of the abdomen on image 32 of the axial series. 2. Enlarging left adrenal nodule. This has slowly increased in size from 2004 and may reflect a slo wly enlarging adenoma. A nonemergent MRI or CT of the abdomen utilizing adrenal mass protocol is rec ommended. 3. Bibasilar atelectasis. 4. Mild free fluid in the pelvis. POS: [facility]
[2019-01-03] MEDS ORDERED: Lactated Ringer's 1,000 ML IV SCH (08:00)
[2019-01-03] MEDS ORDERED: Ketorolac Tromethamine 30 MG/ML VIAL IVP SCH ×2 (08:00→12:00)
[2019-01-03] MEDS ORDERED: Acetaminophen 1,000 MG in Premix Bag 1 BAG IVPB SCH ×2 (08:00→12:00)
[2019-01-03] MEDS ORDERED: Fentanyl 100 MCG/2 ML VIAL SLOW IVP PRN (08:10)
--- NOTE | 2019-01-03 08:45 | RAD ---
CHEST 1 VIEW: INDICATION: NG tube adjustment. IMPRESSION: The NG tube tip has been advanced and now projects in the region of the fundus of the stomach. Lung b ases are clear. POS: [facility]
--- NOTE | 2019-01-03 08:49 | HP ---
HISTORY OF PRESENT ILLNESS: Sharmaine Ny is a 53-year-old female, who works for [employer] She experienced 6 hours of abdominal pain in upper abdomen, midline, associated with nausea, vomiting, and cramping. She presented to the emergency room, had an NG tube, given her some relief. She complains about the NG tube in the back of her throat and there is a question as its position. Stat abdominal x-ray has been ordered to evaluate that. The patient has not had previous upper abdominal pains. In the emergency room, the patient had a white count of 11 and hemoglobin of 14. Basic metabolic profile normal. Liver function tests are normal. She had a CAT scan of the abdomen and pelvis that revealed dilated loops of bowel in the central abdomen, decompressed loops in both proximal and distal ileum with swirling of the mesentery suggestive of an internal volvulus. She continues to have significant amount of pain, although somewhat released and is placed in the NG tube and evacuation of clear fluid. She has been transferred to the floor and been on the 4th floor for an hour without IV fluids or NG tube to suction. SOCIAL HISTORY: Tobacco, none. Alcohol, none. ALLERGIES: SHE HAS MULTIPLE ALLERGIES; BROMPHENIRAMINE, DIAZEPAM, CODEINE, HYDROCODONE, LEVAQUIN, MORPHINE, PSEUDOEPHEDRINE, TRAMADOL, AND TERBUTALINE. MEDICATIONS: Metoprolol 50 mg once a day. PAST SURGICAL HISTORY: Bilateral tubal ligation and . PAST MEDICAL HISTORY: Noncontributory. REVIEW OF SYSTEMS: Noncontributory. PHYSICAL EXAMINATION: VITAL SIGNS: Weight 99 kg. Blood pressure 123/89, pulse 99, respiratory rate 20, and temperature 97.9 degrees. HEAD, EARS, EYES, NOSE, AND THROAT: Unremarkable. LUNGS: Clear to auscultation. CARDIAC: Regular rate and rhythm without murmur or gallop. ABDOMEN: Obese, tenderness in her upper abdomen. Remainder of the abdomen is soft. Bowel sounds are occasional. EXTREMITIES: Unremarkable. LABORATORY DATA: As noted. ASSESSMENT AND PLAN: 1. Abdominal pain. CAT scan suggest an internal hernia. She has dilated bowel loops. She had relief with NG tube. We would recommend laparoscopic, diagnostic and procedures indicated, possible open laparotomy, pending operative findings. We will obtain a gallbladder ultrasound to assure that there are no gallstones. If she does have gallstones, although asymptomatic in the past, we will plan laparoscopic cholecystectomy. I have explained these procedures, risks, and benefits, and questions answered. 2. Multiple allergies. 3. On metoprolol. Job ID: [id number]
--- NOTE | 2019-01-03 08:49 | RAD ---
CHEST 1 VIEW: INDICATION: NG tube placement. COMPARISON: Prior exam dated 12/06/2018. FINDINGS: The nasogastric tube projects beyond the left hemidiaphragm beyond the field o view. Lungs are clear . Heart size is mildly enlarged. NO acute osseous abnormality is evident. IMPRESSION: Nasogastric tube tip suspected in the region of the gastric cardia junction. Recommend advancement. No acute cardiopulmonary abnormality. POS: [facility]
[2019-01-03] MEDS ORDERED: Pantoprazole 40 MG VIAL IVP SCH (09:00)
[2019-01-03] MEDS: Scopolamine 1.5 mg/72 hour Patch TD SCH (09:01)
--- NOTE | 2019-01-03 09:07 | ULT ---
Right upper quadrant ultrasound: 01/03/2019 COMPARISON: None HISTORY: Abdominal pain TECHNIQUE: Multiplanar grayscale sonographic imaging of right upper quadrant obtained. FINDINGS: The pancreas is obscured by bowel gas. The hepatic parenchyma is mildly heterogeneous and e chogenic. No focal liver lesion. The common bile duct measures 5 mm, within normal limits. No gallbladder wall thickening or pericholecystic fluid. No gallstones are noted. Right kidney measures 10.3 cm in craniocaudal dimension and demonstrates no evidence for stone, hydro nephrosis, or mass lesion. The left lobe of the liver is obscured by bowel gas. IMPRESSION: No acute findings.
[2019-01-03 09:17] VITALS: BMI 33.2
--- NOTE | 2019-01-03 09:41 | RAD ---
ABDOMEN 1 VIEW: HISTORY: Abdominal pain and T-tube placement. COMPARISON: Radiograph of same day. FINDINGS: Enteric tube is in place with tip at the gastric body. Side port is below the GE junction. IMPRESSION: Satisfactory position of the nasogastric tube. POS: [facility]
[2019-01-03] MEDS ORDERED: ISOVUE-370 76%-LOCM 1 ML ONE (11:14)
[2019-01-03] MEDS ORDERED: Bupivacaine HCl 0.5%/Epinephrine 1:200,000/PF 30 ml Vial ONE (13:38)
[2019-01-03] MEDS ORDERED: Fentanyl 250 MCG/5 ML VIAL ONE (13:51)
[2019-01-03] MEDS ORDERED: Meropenem 2 GM in Admixture Fee 1 EACH IVPB SCH (14:00)
[2019-01-03] MEDS ORDERED: Meropenem 2 GM in Sodium Chloride 0.9% 100 ML IVPB SCH (14:00)
[2019-01-03] MEDS ORDERED: traMADol HCl 50 MG TAB PO PRN ×2 (15:46)
[2019-01-03] MEDS ORDERED: Ibuprofen 600 MG TAB PO PRN (15:46)
[2019-01-03] MEDS ORDERED: Acetaminophen 500 MG TAB PO PRN (15:46)
[2019-01-03] MEDS ORDERED: Ketorolac Tromethamine 30 MG/ML VIAL IVP PRN (15:48)
[2019-01-03] MEDS: Lactated Ringer's 1,000 ML IV SCH ×2 (18:00→20:06)
[2019-01-03] MEDS ORDERED: Enoxaparin Sodium 40 MG/0.4 ML SYRINGE SC SCH (21:00)
[2019-01-04] MEDS: Lactated Ringer's 1,000 ML IV SCH (07:28)
[2019-01-04] MEDS: Scopolamine 1.5 mg/72 hour Patch TD SCH (16:17)
--- NOTE | 2019-01-04 17:46 | PRG ---
DATE OF SERVICE: 01/04/2019 SUBJECTIVE: Sharmaine Ny is doing well today. She is tolerating her diet and feels much better, although she is having some mild upper abdominal discomfort postprandial. She has not had any nausea or vomiting. She has passed flatus. OBJECTIVE: VITAL SIGNS: Temperature 98.1 degrees, pulse 59, and blood pressure 130/73. LUNGS: Clear to auscultation. CARDIAC: Regular rate and rhythm without murmur or gallop. ABDOMEN: Soft, obese, and nontender. Bowel sounds present. LABORATORY DATA: No laboratories this morning. ASSESSMENT AND PLAN: Postoperative laparoscopy without significant findings. She is tolerating her diet. She can discharge home. She will take Tylenol and ibuprofen [id number] for pain if she is having minimal discomfort. She will follow up with me in 2 to 3 weeks. Job ID: [id number]
[2019-01-04 19:03] VITALS: BP 144/69; TEMP 97.7
--- NOTE | 2019-01-05 01:20 | OP ---
DATE OF PROCEDURE: 01/03/2019 PREOPERATIVE DIAGNOSES: Abdominal pain. CAT scan suggests abdominal swirling with internal hernia. Prior history of section and tubal ligation. PROCEDURE PERFORMED: 1. Diagnostic laparoscopy with laparoscopic adhesiolysis (omentum to the left pelvic sidewall). No mechanical obstruction of the small bowel noted. 2. EGD. No abnormalities noted. ANESTHESIA: General, local 0.5% Marcaine with epinephrine. DESCRIPTION OF PROCEDURE: The patient taken to the operating room, where under general anesthesia abdomen was prepared with ChloraPrep and draped in routine fashion. A Bender catheter placed at the beginning of the procedure and removed at the end. Left lateral subcostal incision made. Pneumoperitoneum to 15 mmHg was obtained with a Veress needle, replaced with a 5 port under laparoscopic visualization. The left lateral mid abdominal incision and the left lower quadrant lateral abdominal incision made and 5 port was placed. There were omental adhesions in the left pelvis and these were taken down with hot cautery, mobilizing the omentum and reflecting it cephalad. Small bowel appeared to be normal. Small bowel was evaluated from the ileocecal valve to the ligament of Treitz and back again without any abnormalities or mechanical obstruction. There were some segmental dilatation, but no evidence of intussusception and no masses. Abdominal cavity irrigated, pneumoperitoneum evacuated. All instruments removed. Grossly abdominal cavity was otherwise unremarkable. Colon appeared to be normal. Upper abdominal appeared to be normal. Wounds approximated with interrupted suture of 4-0 Monocryl and Clarks glue applied. Because of her upper abdominal complaints and cramping pain, upper endoscopy was performed. Endoscope placed per os under direct visualization, under air insufflation passed insufflation passed throughout the esophagus, stomach, to the pylorus, the duodenum. Third portion of the duodenum appeared to be normal as well as the remainder duodenum. Scope withdrawn. Pylorus was normal. Stomach normal. Retroflexion of scope revealed normal gastroesophageal junction and fundus. Scope withdrawn noting normal esophagus. The patient tolerated the procedure well. Of note is that the patient's CAT scan suggested mechanical internal hernia, but none was found during laparoscopy. Preoperative abdominal ultrasound was obtained revealing normal liver and normal gallbladder without gallstones. There is no prior history of biliary colic symptoms. The patient will be placed on a diet and observed. Discharge home tomorrow. Job ID: [id number]
--- NOTE | 2019-01-05 02:26 | DIS ---
DATE OF ADMISSION: 01/03/2019 DATE OF DISCHARGE: 01/04/2019 DISCHARGE DIAGNOSIS: Abdominal pain of uncertain etiology. CAT scan of the abdomen and pelvis in the emergency room on 01/03/2019 suggested dilated loops of small bowel in the central abdomen, decompressed loops both proximal and distal with swirling of the mesenteric left to midline, left upper quadrant, suspicious for internal volvulus. Lead points of the dilated bowel is seen within the left upper quadrant of the abdomen. Left adrenal adenoma, 1.7 cm currently, relative to 1.4 cm previously compared to CAT scan in February 2012. A small amount of free fluid in the pelvis. Bilateral ligation clips noted. HISTORY: A 53-year-old female who presented to the emergency room with abdominal pain, acute onset 6 hours prior to presentation. She had an NG tube placed giving her some relief. This helped her pain. Past history includes tubal ligation and C-sections. The patient's abdomen was soft, but had tenderness with guarding in upper abdomen. Due to these findings and suspicion of internal hernia, laparoscopy undertaken, but was unremarkable. The small bowel was inspected laparoscopically ligament of Treitz to the terminal ileum, noted to be normal with subsegmental dilated loops, but no appreciable masses or mechanical obstruction. Postoperatively, the patient's NG tube was removed prior to waking from her surgery and she had her diet advanced. By this time, she is tolerating her diet. She is having some postprandial upper abdominal fullness, but not like she had before. Her cramping pain is resolved. At the time of the surgery after noting normal laparoscopy, upper endoscopy performed with noting normal stomach, pylorus, and duodenum. If the patient has recurrent symptoms, GI consult could be obtained with deeper upper endoscopy performed. At this point, we will observe her and be discharged home to resume her home medications, metoprolol, Tylenol, Advil as needed for pain. When admitted, her CBC revealed a white count of 11 and hemoglobin of 14 and comprehensive metabolic profile is normal. Job ID: [id number]
--- NOTE | 2019-01-06 11:39 | OP ---
DATE OF PROCEDURE: 01/03/2019 PREOPERATIVE DIAGNOSIS: Abdominal pain, severe. CAT scan suggesting internal hernia with prior personal history of section and tubal ligation only. POSTOPERATIVE DIAGNOSIS: Normal laparoscopy. PROCEDURE PERFORMED: Diagnostic laparoscopy, esophagogastroduodenoscopy, which is normal and lysis of adhesions. Normal small bowel. No mechanical obstruction. ANESTHESIA: General, local 0.5% Marcaine with epinephrine 30 mL. DESCRIPTION OF PROCEDURE: The patient was taken to the operating room where under general anesthesia, Bender catheter placed at the beginning of the procedure and removed at the end. Abdomen was prepared with ChloraPrep and draped in routine fashion. Local anesthetic was infiltrated in the skin and subcutaneous tissue about each port site. A left lateral subcostal incision was made. Pneumoperitoneum to 15 mmHg was obtained with a Veress needle, replaced with a 5 port. A video laparoscope was inserted. A left lower quadrant incision was made and the 5 port was placed. A midlateral left abdominal incision was made and another 5 port was placed. Abdominal cavity was essentially unremarkable. There were adhesions, omentum adherent to the left pelvic sidewall. These were taken down with hot scissors. The omentum was reflected cephalad. Terminal ileum was identified. Cecum was noted to be normal. Appendix was normal. Terminal ileum was identified and small bowel was evaluated as I viewed it margin proximally to the ligament of Treitz, noting no abnormalities. Small bowel was again inspected from the ligament of Treitz to the cecum, noted to be normal. No other abnormalities were noted. Pneumoperitoneum was evacuated. All instruments were removed. All skin incisions were approximated with interrupted subdermal 4-0 Monocryl. Endoscopy was performed. Upper endoscopy performed was normal. Scope was placed per os under direct visualization, using air insufflation passed throughout esophagus, stomach, pylorus and the duodenum. There were no ulcerations, no abnormality. There were some changes at the gastric mucosa consistent with NG tube irritation/trauma, but no ulcerations or abnormalities. Retroflexion of scope revealed normal GE junction and fundus. Scope was withdrawn, decompressing the stomach, removed, noting normal esophagus. Job ID: [id number]
[2019-01-08] MEDS ORDERED: Ibuprofen 600 MG TAB PO PRN (18:00)
== END 2019-01-04 18:55 | disposition home or self-care (01) | DRG 358 ==
LOC: ERS 01:39 → ERHOLD 03:50 → T4-A 06:38
PROVIDERS: ADMIT Specialist; ATTEND Specialist
PROC: 0DJ08ZZ Inspection of Upper Intestinal Tract, Via Natural or Artificial Opening Endoscopic (ICD-10-PCS; principal; 2019-01-03)
PROC: 0WJG4ZZ Inspection of Peritoneal Cavity, Percutaneous Endoscopic Approach (ICD-10-PCS; 2019-01-03)
DX: R10.9 Unspecified abdominal pain (principal); N73.6 Female pelvic peritoneal adhesions (postinfective)
CPT/HCPCS: 71045; 74018; 74177; 76705; 80053; 83690; 84484; 85025; 93005; 96374; 96375; 96376; C9113; J0131; J0670; J1200; J1650; J1885; J2185; J2930; J3010; J3490; S0028

== ENCOUNTER 2019-01-23 08:22 | Outpatient (CLI) | payer OTHER ==
--- NOTE | 2019-01-23 09:09 | MMO ---
Bilateral MAMMO Bilat Screen [facility]. CLINICAL HISTORY: Patient is 53 years old and is seen for screening. The patient has the following family history of breast cancer: sister, at age 50, malignant (generic). The patient has no personal history of cancer. VIEWS: The views performed were: bilateral craniocaudal with tomosynthesis and bilateral mediolateral oblique with tomosynthesis. FILMS COMPARED: The present examination has been compared to prior imaging studies performed at [facility] on 01/23/2014 and 02/15/2016, and at [facility] [place] on 11/16/2011. MAMMOGRAM FINDINGS: There are scattered fibroglandular densities. There are stable benign appearing calcifications seen in both breasts. There are no suspicious masses, suspicious calcifications, or new areas of architectural distortion. IMPRESSION: THERE IS NO MAMMOGRAPHIC EVIDENCE OF MALIGNANCY. A ROUTINE FOLLOW-UP MAMMOGRAM IN 1 YEAR IS RECOMMENDED. THE RESULTS OF THIS EXAM WERE SENT TO THE PATIENT. ACR BI-RADS Category 2 - Benign finding MAMMOGRAPHY NOTE: 1. A negative mammogram report should not delay a biopsy if a dominant of clinically suspicious mass is present. 2. Approximately 10% to 15% of breast cancers are not detected by mammography. 3. Adenosis and dense breasts may obscure an underlying neoplasm.
== END 2019-01-23 08:23 | disposition home or self-care (01) ==
LOC: BICMAMMO 08:22
PROVIDERS: ATTEND Internal Medicine
DX: Z12.31 Encounter for screening mammogram for malignant neoplasm of breast (principal); Z80.3 Family history of malignant neoplasm of breast
CPT/HCPCS: 77063; 77067

== ENCOUNTER 2019-10-09 07:31 | Outpatient (CLI) | payer OTHER ==
--- NOTE | 2019-10-09 09:40 | MRI ---
MR CERVICAL SPINE WITHOUT CONTRAST CLINICAL HISTORY: 54-year-old female with neck pain that radiates into the jaw COMPARISON: Prior MR cervical spine dated August 08, 2017 TECHNIQUE: Multiplanar multisequence MR images were obtained of the cervical spine without contrast. FINDINGS: Posterior fossa: Within normal limits. Bone marrow signal intensity: Normal Spinal alignment: Normal. Craniocervical junction: Normal appearing. Prevertebral and perivertebral soft tissues: Visualized soft tissues appear within normal limits. Vertebral levels: C2-C3: There is moderate left and mild right facet osteoarthrosis which is stable. C3-4: There is a broad-based bulge with uncovertebral hypertrophy and facet joint degenerative change inducing moderate to severe left neural foraminal narrowing which is stable. C4-5: There is a broad-based disc bulge with facet hypertrophy. There is mild central canal narrowin g which is stable. C5-C6: There is broad-based bulge with a superimposed central protrusion causing mild central canal n arrowing which is stable to the prior exam. C6-C7:, There is a broad-based bulge causing some mild ventral effacement of subarachnoid space witho ut definite cord contact. C7-T1: No appreciable central canal or neuroforaminal narrowing. IMPRESSION: 1. Stable cervical spondylosis with stable moderate to severe left neural foraminal narrowing at C3-4 . 2. Stable mild central canal narrowing at C4-5 and C5-6
== END 2019-10-09 07:32 | disposition home or self-care (01) ==
LOC: SCSMRI 07:31
PROVIDERS: ATTEND Internal Medicine
DX: M54.2 Cervicalgia (principal); M47.812 Spondylosis without myelopathy or radiculopathy, cervical region; M48.02 Spinal stenosis, cervical region
CPT/HCPCS: 72141

== ENCOUNTER 2019-10-10 08:46 | Emergency (ER) | payer OTHER ==
[2019-10-10 09:32] LABS: Bacteria/HPF None Seen HPF (None Seen); Bilirubin Negative (Negative); Blood, Urine Negative (Negative); Clarity Clear (Clear); Glucose, Urine (Dipstick) Normal (Negative); Leukocyte 25 Leu/uL (Negative); Nitrite Negative (Negative); Protein, Urine (Dipstick) Negative (Neg-Trace); RBC/HPF 0-3 HPF (0-3); Squamous Epithelial None Seen HPF (0-3); Urobilinogen Normal mg/dL (Less than 2); WBC/HPF 0-3 HPF (0-3)
[2019-10-10 09:36] LABS: #Basophils 0.1 thou/uL (0.0-0.2); #Eosinphils 0.2 thou/uL (0.0-0.7); #Lymphocytes 1.9 thou/uL (1.20-3.40); #Monocytes 0.6 thou/uL (0.11-0.59); #Neutrophils 7.4 thou/uL (1.40-6.50); %Basophils 0.9 % (0.0-1.0); %Eosinophils 2.1 % (0.0-10.0); %Lymphocytes 18.7 % (21.0-51.0); %Monocytes 6.2 % (0.0-10.0); Hemoglobin 14.9 g/dL (12.0-16.0); Mean Corpuscular HGB CONC 30.7 g/dL (32.0-36.0); Mean Corpuscular Hemoglobin 27.3 pg (27.0-31.0); Mean Corpuscular Volume 88.8 fL (78.0-98.0); Mean Platelet Volume 8.6 fL (7.4-10.4); Platelet Count 218 thou/uL (130-400); RBC Distribution Width 12.8 % (11.5-14.5); Red Blood Cell (RBC) Count 5.46 mill/uL (4.20-5.40); White Blood Cell (WBC) Count 10.3 thou/uL (4.8-10.8)
[2019-10-10 09:51] LABS: ALT (SGPT) 25 U/L (8-55); AST (SGOT) 16 U/L (5-34); Alkaline Phosphatase 110 U/L (40-110); Anion Gap 10 mmol/L (10-20); BUN (Urea Nitrogen) 12 mg/dL (9.8-20.1); Bilirubin, Total 0.7 mg/dL (0.2-1.2); CK (CPK) 35 U/L (29-168); Calc. Creatinine Clearance 0 mL/min (70-130); Calcium 8.9 mg/dL (7.8-10.44); Carbon Dioxide 28 mmol/L (22-29); Chloride 107 mmol/L (98-107); Estimated GFR-MDRD 71; Globulin 2.7 g/dL (2.4-3.5); Glucose 102 mg/dL (70-105); Potassium 3.9 mmol/L (3.5-5.1); Protein, Total 6.7 g/dL (6.0-8.3); Sodium 141 mmol/L (136-145)
== END 2019-10-10 13:34 | disposition home or self-care (01) ==
LOC: ERS 08:46
DX: R55 Syncope and collapse (principal); E78.5 Hyperlipidemia, unspecified; F41.9 Anxiety disorder, unspecified; I10 Essential (primary) hypertension; Z87.891 Personal history of nicotine dependence; Z79.899 Other long term (current) drug therapy
CPT/HCPCS: 36415; 80053; 81003; 81015; 82550; 84484; 85025; 93005; 96360; 96361

== ENCOUNTER 2020-10-21 23:18 | Emergency (ER) | payer OTHER ==
[2020-10-21 23:43] LABS: #Basophils 0.1 thou/uL (0.0-0.2); #Eosinphils 0.3 thou/uL (0.0-0.7); #Lymphocytes 3.7 thou/uL (1.20-3.40); #Monocytes 0.8 thou/uL (0.11-0.59); #Neutrophils 7.7 thou/uL (1.40-6.50); %Basophils 0.8 % (0.0-1.0); %Eosinophils 2.1 % (0.0-10.0); %Lymphocytes 29.4 % (21.0-51.0); %Monocytes 6.6 % (0.0-10.0); %Neutrophils 61.1 % (42.0-75.0); Hemoglobin 15.7 g/dL (12.0-16.0); Mean Corpuscular HGB CONC 32.9 g/dL (32.0-36.0); Mean Corpuscular Hemoglobin 28.9 pg (27.0-31.0); Platelet Count 249 thou/uL (130-400); RBC Distribution Width 12.1 % (11.5-14.5); Red Blood Cell (RBC) Count 5.44 mill/uL (4.20-5.40); White Blood Cell (WBC) Count 12.6 thou/uL (4.8-10.8)
[2020-10-21] MEDS ORDERED: Lorazepam 2 MG/ML VIAL ONE (23:44)
[2020-10-21 23:54] LABS: ALT (SGPT) 29 U/L (8-55); AST (SGOT) 34 U/L (5-34); Albumin 4.5 g/dL (3.5-5.0); Alkaline Phosphatase 143 U/L (40-110); Anion Gap 18 mmol/L (10-20); BUN (Urea Nitrogen) 22 mg/dL (9.8-20.1); Bilirubin, Total 0.2 mg/dL (0.2-1.2); Calc. Creatinine Clearance 0 mL/min (70-130); Calcium 9.4 mg/dL (7.8-10.44); Carbon Dioxide 23 mmol/L (22-29); Chloride 104 mmol/L (98-107); Glucose 125 mg/dL (70-105); Potassium 4.6 mmol/L (3.5-5.1); Protein, Total 8.5 g/dL (6.0-8.3); Sodium 140 mmol/L (136-145)
--- NOTE | 2020-10-22 08:59 | RAD ---
PORTABLE CHEST: DATE: 10/21/2020. PROVIDED CLINICAL HISTORY: Chest pain. FINDINGS: Comparison 01/03/2019. The cardiac and mediastinal silhouette is within normal limits. No focal cons olidation, pleural fluid, or pneumothorax apparent. IMPRESSION: No evidence for an acute cardiopulmonary process. POS: [facility]
== END 2020-10-22 00:21 | disposition home or self-care (01) ==
LOC: ERS 23:18
DX: F41.0 Panic disorder [episodic paroxysmal anxiety] (principal); M25.512 Pain in left shoulder; R07.9 Chest pain, unspecified; R06.02 Shortness of breath; I10 Essential (primary) hypertension; Z87.891 Personal history of nicotine dependence
CPT/HCPCS: 71045; 80053; 84484; 85025; 85379; 93005; 96374; J2060

== ENCOUNTER 2020-12-23 14:35 | Outpatient (CLI) | payer OTHER | END 2020-12-23 14:36 | disposition home or self-care (01) | LOC: BICRAD 14:35 | PROVIDERS: ATTEND Internal Medicine Rheumatology | DX: M47.812 Spondylosis without myelopathy or radiculopathy, cervical region (principal); M25.512 Pain in left shoulder; M48.02 Spinal stenosis, cervical region | CPT/HCPCS: 72052 ==

== ENCOUNTER 2021-08-23 09:25 | Outpatient (CLI) | payer OTHER | END 2021-08-23 09:26 | disposition home or self-care (01) | LOC: SCSMRI 09:25 | PROVIDERS: ATTEND Nurse Practitioner Family | DX: M47.22 Other spondylosis with radiculopathy, cervical region (principal); M48.02 Spinal stenosis, cervical region; M89.9 Disorder of bone, unspecified | CPT/HCPCS: 72141 ==

== ENCOUNTER 2021-10-18 21:15 | Inpatient (IN) | payer OTHER ==
[2021-10-18] MEDS ORDERED: Pantoprazole 40 MG VIAL ONE (21:46)
[2021-10-18] MEDS ORDERED: Fentanyl 100 MCG/2 ML VIAL ONE ×2 (21:46→23:26)
[2021-10-18] MEDS ORDERED: Ondansetron PF 4 MG/2 ML Vial ONE (21:46)
[2021-10-18 22:00] LABS: #Eosinphils 0.3 thou/uL (0.0-0.7); #Lymphocytes 1.4 thou/uL (1.20-3.40); #Monocytes 0.5 thou/uL (0.11-0.59); %Basophils 0.2 % (0.0-1.0); %Eosinophils 2.3 % (0.0-10.0); %Lymphocytes 11.4 % (21.0-51.0); %Monocytes 4.2 % (0.0-10.0); %Neutrophils 81.9 % (42.0-75.0); Hemoglobin 13.8 g/dL (12.0-16.0); Mean Corpuscular HGB CONC 31.9 g/dL (32.0-36.0); Mean Corpuscular Hemoglobin 29.8 pg (27.0-31.0); Mean Corpuscular Volume 93.4 fL (78.0-98.0); Mean Platelet Volume 7.6 fL (7.4-10.4); Platelet Count 213 thou/uL (130-400); RBC Distribution Width 12.7 % (11.5-14.5); Red Blood Cell (RBC) Count 4.64 mill/uL (4.20-5.40); White Blood Cell (WBC) Count 12.2 thou/uL (4.8-10.8)
[2021-10-18 22:12] LABS: PTT 28.4 sec (22.9-36.1); Prothrombin Time 13.1 sec (12.0-14.7)
[2021-10-18 22:23] LABS: ALT (SGPT) 14 U/L (8-55); AST (SGOT) 21 U/L (5-34); Alkaline Phosphatase 81 U/L (40-110); Anion Gap 15 mmol/L (10-20); BUN (Urea Nitrogen) 12 mg/dL (9.8-20.1); Bilirubin, Total 0.3 mg/dL (0.2-1.2); CK (CPK) 58 U/L (29-168); Calc. Creatinine Clearance 0 mL/min (70-130); Calcium 9.1 mg/dL (7.8-10.44); Carbon Dioxide 25 mmol/L (22-29); Chloride 103 mmol/L (98-107); Globulin 2.4 g/dL (2.4-3.5); Glucose 99 mg/dL (70-105); Lipase 25 U/L (8-78); Potassium 3.8 mmol/L (3.5-5.1); Protein, Total 6.4 g/dL (6.0-8.3); Sodium 139 mmol/L (136-145)
[2021-10-19] MEDS ORDERED: Piperacillin/Tazobactam 4.5 GM VIAL ONE (01:39)
[2021-10-19] MEDS ORDERED: Sodium Chloride 0.9% 1,000 ML IV SCH (09:15)
[2021-10-19] MEDS ORDERED: Ondansetron PF 4 MG/2 ML Vial IVP PRN (09:15)
[2021-10-19] MEDS ORDERED: Ondansetron ODT 4 MG TAB SL PRN (09:15)
[2021-10-19] MEDS ORDERED: Piperacillin/Tazobactam 3.375 GM in Sodium Chloride 0.9% 100 ML IVPB SCH ×2 (10:00→14:00)
[2021-10-19 11:45] LABS: SARS-CoV-2 NAA Rapid Test Not Detected (NotDetected)
[2021-10-19] MEDS ORDERED: Ondansetron ODT 4 MG TAB PO PRN (12:06)
[2021-10-19] MEDS ORDERED: hydrALAZINE 20 MG/ML VIAL SLOW IVP PRN (12:06)
[2021-10-19] MEDS: Lactated Ringer's 1,000 ML IV SCH ×2 (12:15→21:33)
[2021-10-19] MEDS ORDERED: Ketorolac Tromethamine 30 MG/ML VIAL IVP SCH (12:15)
[2021-10-19] MEDS: Fentanyl 100 MCG/2 ML VIAL SLOW IVP PRN ×4 (12:32→21:36)
[2021-10-19 12:37] VITALS: BMI 33.2
[2021-10-19] MEDS ORDERED: Piperacillin/Tazobactam 4.5 GM in Sodium Chloride 0.9% 100 ML IVPB SCH (14:00)
[2021-10-19] MEDS: Piperacillin/Tazobactam 3.375 GM in Sodium Chloride 0.9% 100 ML IVPB SCH (17:10)
[2021-10-19] MEDS: Ketorolac Tromethamine 30 MG/ML VIAL IVP PRN (18:19)
[2021-10-19] MEDS ORDERED: Lorazepam 1 MG TAB PO PRN (19:44)
[2021-10-19] MEDS ORDERED: Lorazepam 0.5 MG TAB PO PRN (19:45)
[2021-10-19] MEDS: Enoxaparin Sodium 40 MG/0.4 ML SYRINGE SC SCH (21:32)
[2021-10-20] MEDS: Ketorolac Tromethamine 30 MG/ML VIAL IVP PRN ×3 (00:52→18:34)
[2021-10-20] MEDS: Fentanyl 100 MCG/2 ML VIAL SLOW IVP PRN ×4 (01:51→19:40)
[2021-10-20] MEDS: Piperacillin/Tazobactam 3.375 GM in Sodium Chloride 0.9% 100 ML IVPB SCH ×3 (01:52→14:57)
[2021-10-20] MEDS: Lactated Ringer's 1,000 ML IV SCH ×3 (06:49→19:41)
[2021-10-20 08:05] LABS: Hemoglobin 11.3 g/dL (12.0-16.0); Mean Corpuscular HGB CONC 32.7 g/dL (32.0-36.0); Mean Corpuscular Hemoglobin 30.5 pg (27.0-31.0); Mean Corpuscular Volume 93.4 fL (78.0-98.0); Mean Platelet Volume 7.6 fL (7.4-10.4); Platelet Count 174 thou/uL (130-400); RBC Distribution Width 12.6 % (11.5-14.5); White Blood Cell (WBC) Count 18.8 thou/uL (4.8-10.8)
[2021-10-20 10:53] LABS: Band 15 % (5-11); Lymphocytes 4 % (21-51); MDiff Complete? YES; Monocytes 3 % (0-10); Neutrophil 77 % (42-75); Platelet Morphology Comment Appears Adequate; Polychromasia SLIGHT = 2-3 cells (100X) (0-2/hpf)
[2021-10-20] MEDS ORDERED: Metoclopramide HCl 10 MG/2 ML VIAL IVP SCH (11:00)
[2021-10-20] MEDS ORDERED: Ketorolac Tromethamine 30 MG/ML VIAL IVP SCH (11:00)
[2021-10-20] MEDS ORDERED: ADENOSINE 60 MG/20 ML VIAL ONE (11:02)
[2021-10-20] MEDS: Ondansetron PF 4 MG/2 ML Vial IVP PRN ×2 (11:18→21:10)
[2021-10-20] MEDS: Metoclopramide HCl 10 MG/2 ML VIAL IVP PRN (19:20)
[2021-10-20] MEDS: Enoxaparin Sodium 40 MG/0.4 ML SYRINGE SC SCH (21:09)
[2021-10-21] MEDS: Piperacillin/Tazobactam 3.375 GM in Sodium Chloride 0.9% 100 ML IVPB SCH ×4 (00:07→23:10)
[2021-10-21] MEDS: Fentanyl 100 MCG/2 ML VIAL SLOW IVP PRN ×3 (00:25→10:25)
[2021-10-21] MEDS: Ketorolac Tromethamine 30 MG/ML VIAL IVP PRN (02:54)
[2021-10-21] MEDS: Lactated Ringer's 1,000 ML IV SCH ×4 (02:55→23:09)
[2021-10-21] MEDS ORDERED: Lorazepam 2 MG/ML VIAL ONE (04:54)
[2021-10-21] MEDS ORDERED: Lorazepam 2 MG/ML VIAL SLOW IVP PRN ×2 (04:58→04:59)
[2021-10-21 06:02] LABS: Chloride 105 mmol/L (98-107); Potassium 3.6 mmol/L (3.5-5.1); Sodium 135 mmol/L (136-145)
[2021-10-21 06:03] LABS: Calcium 8.4 mg/dL (7.8-10.44); Glucose 124 mg/dL (70-105)
[2021-10-21 06:05] LABS: Anion Gap 15 mmol/L (10-20); Carbon Dioxide 19 mmol/L (22-29)
[2021-10-21 06:07] LABS: BUN (Urea Nitrogen) 7 mg/dL (9.8-20.1); Calc. Creatinine Clearance 135 mL/min (70-130)
[2021-10-21 06:41] LABS: Hemoglobin 11.7 g/dL (12.0-16.0); Mean Corpuscular Hemoglobin 30.1 pg (27.0-31.0); Mean Corpuscular Volume 97.1 fL (78.0-98.0); Platelet Count 178 thou/uL (130-400); RBC Distribution Width 12.5 % (11.5-14.5); Red Blood Cell (RBC) Count 3.88 mill/uL (4.20-5.40); White Blood Cell (WBC) Count 16.4 thou/uL (4.8-10.8)
[2021-10-21 08:37] LABS: Band 16 % (5-11); Lymphocytes 3 % (21-51); MDiff Complete? YES; Monocytes 5 % (0-10); Neutrophil 76 % (42-75); Platelet Morphology Comment Appears Adequate; Polychromasia SLIGHT = 2-3 cells (100X) (0-2/hpf)
[2021-10-21] MEDS: Ondansetron PF 4 MG/2 ML Vial IVP PRN (10:27)
[2021-10-21] MEDS ORDERED: Lorazepam 2 MG/ML VIAL SLOW IVP SCH (13:30)
[2021-10-21] MEDS ORDERED: EPINEPHrine 1 MG/ML AMP ONE (15:28)
[2021-10-21] MEDS ORDERED: Bupivacaine PF 0.5% 30 ML VIAL ONE (15:28)
[2021-10-21] MEDS ORDERED: Fentanyl 250 MCG/5 ML VIAL ONE ×2 (16:25→22:03)
[2021-10-21] MEDS ORDERED: HYDROmorphone 2 MG/ML VIAL ONE (16:25)
[2021-10-21] MEDS ORDERED: Midazolam HCl 2 mg/2 ml Vial ONE ×2 (16:25→17:46)
[2021-10-21] MEDS ORDERED: Sodium Chloride 0.9% 30 ML ONE (16:48)
[2021-10-21] MEDS ORDERED: PROPOFOL 20 ML ONE (17:55)
[2021-10-21] MEDS ORDERED: PROPOFOL 200 MG/20 ML VIAL ONE (19:09)
[2021-10-21] MEDS ORDERED: PHENYLEPHRINE-NS 100 MCG/ML 10 ML SYRINGE ONE (19:09)
[2021-10-21] MEDS ORDERED: Lidocaine 1% PF 5 ML VIAL ONE (19:09)
[2021-10-21] MEDS ORDERED: Ondansetron PF 4 MG/2 ML Vial ONE (19:09)
[2021-10-21] MEDS ORDERED: Glycopyrrolate 0.2 MG/ML 5 ML SYRINGE ONE (19:09)
[2021-10-21] MEDS ORDERED: Rocuronium Bromide 10 MG/ML (10ML VIAL) ONE (19:09)
[2021-10-21] MEDS ORDERED: Dexamethasone 20 MG/5 ML VIAL ONE (19:09)
[2021-10-21] MEDS ORDERED: diphenhydrAMINE 50 MG/ML VIAL IM PRN (20:57)
[2021-10-21] MEDS ORDERED: Promethazine HCl 25 MG/ML VIAL IVPB PRN (20:57)
[2021-10-21] MEDS ORDERED: Zolpidem Tartrate 5 MG TAB PO PRN (20:57)
[2021-10-21] MEDS ORDERED: Ondansetron HCl/PF 4 MG/2 ML Vial IVP PRN (20:57)
[2021-10-21] MEDS ORDERED: fentaNYL Citrate/PF 2,000 MCG in Sodium Chloride 0.9% 60 ML IV PRN (20:57)
[2021-10-21] MEDS ORDERED: diphenhydrAMINE 50 MG/ML VIAL IVP PRN (20:57)
[2021-10-21] MEDS ORDERED: Promethazine HCl 25 MG/ML VIAL IM PRN ×2 (20:57)
[2021-10-21] MEDS ORDERED: diphenhydrAMINE 25 MG CAP PO PRN (20:57)
[2021-10-21] MEDS ORDERED: Naloxone HCl 0.4 mg/ml Vial IV PRN (20:57)
[2021-10-21] MEDS ORDERED: Communication Order-Pharmacy FS SCH (21:00)
[2021-10-21] MEDS ORDERED: SUGAMMADEX SODIUM 200 MG/2 ML VIAL ONE (21:07)
[2021-10-21] MEDS ORDERED: Piperacillin/Tazobactam 4.5 GM in Sodium Chloride 0.9% 100 ML IVPB SCH (22:00)
[2021-10-21] MEDS: Enoxaparin Sodium 40 MG/0.4 ML SYRINGE SC SCH (23:09)
[2021-10-22] MEDS: Lactated Ringer's 1,000 ML IV SCH ×4 (01:48→23:38)
[2021-10-22 05:08] LABS: ALT (SGPT) 11 U/L (8-55); AST (SGOT) 15 U/L (5-34); Albumin 2.9 g/dL (3.5-5.0); Alkaline Phosphatase 79 U/L (40-110); Anion Gap 9 mmol/L (10-20); BUN (Urea Nitrogen) 5 mg/dL (9.8-20.1); Bilirubin, Total 0.7 mg/dL (0.2-1.2); Calc. Creatinine Clearance 141 mL/min (70-130); Calcium 8.2 mg/dL (7.8-10.44); Carbon Dioxide 31 mmol/L (22-29); Chloride 103 mmol/L (98-107); Globulin 2.7 g/dL (2.4-3.5); Glucose 174 mg/dL (70-105); Potassium 3.5 mmol/L (3.5-5.1); Protein, Total 5.6 g/dL (6.0-8.3); Sodium 139 mmol/L (136-145)
[2021-10-22 05:55] LABS: Hemoglobin 11.3 g/dL (12.0-16.0); Mean Corpuscular Hemoglobin 31.3 pg (27.0-31.0); Mean Corpuscular Volume 94.9 fL (78.0-98.0); Mean Platelet Volume 7.4 fL (7.4-10.4); Platelet Count 252 thou/uL (130-400); RBC Distribution Width 12.3 % (11.5-14.5); Red Blood Cell (RBC) Count 3.62 mill/uL (4.20-5.40); White Blood Cell (WBC) Count 21.1 thou/uL (4.8-10.8)
[2021-10-22 05:57] LABS: Band 22 % (5-11); Lymphocytes 1 % (21-51); MDiff Complete? YES; Monocytes 5 % (0-10); Neutrophil 72 % (42-75)
[2021-10-22] MEDS: Piperacillin/Tazobactam 3.375 GM in Sodium Chloride 0.9% 100 ML IVPB SCH ×3 (06:09→23:37)
[2021-10-22] MEDS ORDERED: Lithium Carbonate 150 MG CAP PER TUBE SCH (10:00)
[2021-10-22] MEDS: Pantoprazole 40 MG VIAL IVP SCH (10:56)
[2021-10-22] MEDS: Lithium Carbonate 150 MG CAP PER TUBE SCH ×2 (15:24→20:16)
[2021-10-22] MEDS: Enoxaparin Sodium 40 MG/0.4 ML SYRINGE SC SCH (20:17)
[2021-10-23] MEDS: Ondansetron PF 4 MG/2 ML Vial IVP PRN ×2 (03:06→17:48)
[2021-10-23] MEDS ORDERED: Lorazepam 0.5 MG TAB PO SCH ×2 (05:00→21:00)
[2021-10-23 05:25] LABS: Hemoglobin 9.9 g/dL (12.0-16.0); Mean Corpuscular HGB CONC 32.1 g/dL (32.0-36.0); Mean Corpuscular Hemoglobin 31.1 pg (27.0-31.0); Mean Platelet Volume 6.9 fL (7.4-10.4); Platelet Count 324 thou/uL (130-400); RBC Distribution Width 12.6 % (11.5-14.5); Red Blood Cell (RBC) Count 3.19 mill/uL (4.20-5.40); White Blood Cell (WBC) Count 20.2 thou/uL (4.8-10.8)
[2021-10-23 05:26] LABS: ALT (SGPT) 11 U/L (8-55); AST (SGOT) 12 U/L (5-34); Albumin 2.6 g/dL (3.5-5.0); Alkaline Phosphatase 69 U/L (40-110); Anion Gap 5 mmol/L (10-20); BUN (Urea Nitrogen) 7 mg/dL (9.8-20.1); Bilirubin, Total 0.4 mg/dL (0.2-1.2); Calc. Creatinine Clearance 158 mL/min (70-130); Calcium 8.2 mg/dL (7.8-10.44); Carbon Dioxide 35 mmol/L (22-29); Chloride 102 mmol/L (98-107); Globulin 2.6 g/dL (2.4-3.5); Glucose 122 mg/dL (70-105); Potassium 3.1 mmol/L (3.5-5.1); Protein, Total 5.2 g/dL (6.0-8.3); Sodium 139 mmol/L (136-145)
[2021-10-23] MEDS: Piperacillin/Tazobactam 3.375 GM in Sodium Chloride 0.9% 100 ML IVPB SCH ×3 (05:45→23:01)
[2021-10-23] MEDS: Lactated Ringer's 1,000 ML IV SCH ×3 (05:45→20:51)
[2021-10-23 08:11] LABS: Band 34 % (5-11); Hypochromia SLIGHT = 6-15 cells (100X) (0-5/hpf); Lymphocytes 5 % (21-51); MDiff Complete? YES; Metamyelocyte 1 % (0-0); Monocytes 1 % (0-10); Neutrophil 58 % (42-75); Platelet Morphology Comment Appears Adequate; Polychromasia SLIGHT = 2-3 cells (100X) (0-2/hpf); Reactive Lymphocytes 1 % (0-10)
[2021-10-23] MEDS: Metoclopramide HCl 10 MG/2 ML VIAL IVP PRN (08:15)
[2021-10-23] MEDS: Pantoprazole 40 MG VIAL IVP SCH (08:16)
[2021-10-23] MEDS: Lithium Carbonate 150 MG CAP PER TUBE SCH (14:21)
[2021-10-23] MEDS: Lithium Carbonate 150 MG CAP PO SCH ×2 (14:33→18:07)
[2021-10-23] MEDS: Enoxaparin Sodium 40 MG/0.4 ML SYRINGE SC SCH (20:51)
[2021-10-24] MEDS: Lactated Ringer's 1,000 ML IV SCH ×4 (03:56→20:02)
[2021-10-24] MEDS: Piperacillin/Tazobactam 3.375 GM in Sodium Chloride 0.9% 100 ML IVPB SCH ×3 (06:01→23:01)
[2021-10-24] MEDS ORDERED: Non-Formulary Item 1 EACH (Lurasidone Hcl [Latuda] 60 MG Tablet) PO SCH (09:00)
[2021-10-24] MEDS: Lithium Carbonate 150 MG CAP PO SCH ×3 (09:33→17:56)
[2021-10-24] MEDS: PARoxetine 20 MG TAB PO SCH (09:33)
[2021-10-24] MEDS: Pantoprazole 40 MG VIAL IVP SCH (09:34)
[2021-10-24] MEDS: Lurasidone 20 MG TABLET PO SCH (09:34)
[2021-10-24 11:32] LABS: Hemoglobin 11.3 g/dL (12.0-16.0); Mean Corpuscular HGB CONC 30.9 g/dL (32.0-36.0); Mean Corpuscular Volume 97.1 fL (78.0-98.0); Mean Platelet Volume 6.8 fL (7.4-10.4); Platelet Count 424 thou/uL (130-400); RBC Distribution Width 13.2 % (11.5-14.5); Red Blood Cell (RBC) Count 3.77 mill/uL (4.20-5.40); White Blood Cell (WBC) Count 25.2 thou/uL (4.8-10.8)
[2021-10-24 12:00] LABS: Band 13 % (5-11); Lymphocytes 9 % (21-51); MDiff Complete? YES; Monocytes 3 % (0-10); Myelocyte 2 % (0-0); Neutrophil 71 % (42-75); Platelet Morphology Comment Appears Increased; Polychromasia SLIGHT = 2-3 cells (100X) (0-2/hpf); Reactive Lymphocytes 2 % (0-10)
[2021-10-24] MEDS ORDERED: Acetaminophen 500 MG TAB PO PRN (12:49)
[2021-10-24] MEDS ORDERED: Ondansetron ODT 8 MG TAB SL PRN (12:49)
[2021-10-24] MEDS ORDERED: Ondansetron ODT 8 MG TAB PO PRN (12:57)
[2021-10-24] MEDS ORDERED: Potassium Chloride 20 MEQ TAB PO SCH (13:00)
[2021-10-24 14:00] LABS: ALT (SGPT) 8 U/L (8-55); AST (SGOT) 15 U/L (5-34); Albumin 2.8 g/dL (3.5-5.0); Alkaline Phosphatase 93 U/L (40-110); Anion Gap 12 mmol/L (10-20); BUN (Urea Nitrogen) 9 mg/dL (9.8-20.1); Bilirubin, Total 0.6 mg/dL (0.2-1.2); Calc. Creatinine Clearance 141 mL/min (70-130); Calcium 8.6 mg/dL (7.8-10.44); Carbon Dioxide 30 mmol/L (22-29); Chloride 100 mmol/L (98-107); Globulin 2.7 g/dL (2.4-3.5); Glucose 106 mg/dL (70-105); Potassium 3.2 mmol/L (3.5-5.1); Protein, Total 5.5 g/dL (6.0-8.3); Sodium 139 mmol/L (136-145)
[2021-10-24] MEDS: Ondansetron PF 4 MG/2 ML Vial IVP PRN (18:45)
[2021-10-24] MEDS: Enoxaparin Sodium 40 MG/0.4 ML SYRINGE SC SCH (19:57)
[2021-10-25 05:29] LABS: Band 17 % (5-11); Eosinophils 1 % (0-10); Hemoglobin 9.2 g/dL (12.0-16.0); Lymphocytes 9 % (21-51); MDiff Complete? YES; Mean Corpuscular HGB CONC 31.8 g/dL (32.0-36.0); Mean Corpuscular Hemoglobin 30.9 pg (27.0-31.0); Mean Corpuscular Volume 97.2 fL (78.0-98.0); Mean Platelet Volume 6.6 fL (7.4-10.4); Monocytes 12 % (0-10); Neutrophil 60 % (42-75); Platelet Count 386 thou/uL (130-400); Platelet Morphology Comment Appears Adequate; RBC Distribution Width 13.2 % (11.5-14.5); RBC Morphology Normal; Reactive Lymphocytes 1 % (0-10); Red Blood Cell (RBC) Count 2.99 mill/uL (4.20-5.40)
[2021-10-25 05:32] LABS: ALT (SGPT) 7 U/L (8-55); AST (SGOT) 11 U/L (5-34); Albumin 2.2 g/dL (3.5-5.0); Alkaline Phosphatase 70 U/L (40-110); Anion Gap 9 mmol/L (10-20); BUN (Urea Nitrogen) 8 mg/dL (9.8-20.1); Bilirubin, Total 0.4 mg/dL (0.2-1.2); Calc. Creatinine Clearance 158 mL/min (70-130); Calcium 7.7 mg/dL (7.8-10.44); Carbon Dioxide 32 mmol/L (22-29); Chloride 103 mmol/L (98-107); Globulin 2.4 g/dL (2.4-3.5); Glucose 103 mg/dL (70-105); Protein, Total 4.6 g/dL (6.0-8.3); Sodium 141 mmol/L (136-145)
[2021-10-25] MEDS: Piperacillin/Tazobactam 3.375 GM in Sodium Chloride 0.9% 100 ML IVPB SCH ×3 (06:02→23:10)
[2021-10-25] MEDS: Lithium Carbonate 150 MG CAP PO SCH ×3 (09:20→17:14)
[2021-10-25] MEDS: Multivitamin W/ Minerals 1 TAB PO SCH (09:21)
[2021-10-25] MEDS: Ascorbic Acid 500 mg Chewable Tablet PO SCH (09:21)
[2021-10-25] MEDS: PARoxetine 20 MG TAB PO SCH (09:21)
[2021-10-25] MEDS: Lurasidone 20 MG TABLET PO SCH (09:21)
[2021-10-25] MEDS ORDERED: Potassium Chloride 20 MEQ TAB PO SCH ×2 (13:00→17:00)
[2021-10-25] MEDS: Potassium Chloride 20 MEQ in Premix Bag 1 BAG IVPB SCH (13:41)
[2021-10-25] MEDS: Acetaminophen 500 MG TAB PO SCH ×2 (13:45→17:15)
[2021-10-25] MEDS: Ketorolac Tromethamine 30 MG/ML VIAL IVP SCH ×3 (13:45→23:10)
[2021-10-25] MEDS: Lactated Ringer's 1,000 ML IV SCH ×2 (13:46→20:35)
[2021-10-25] MEDS: Enoxaparin Sodium 40 MG/0.4 ML SYRINGE SC SCH (19:38)
[2021-10-26] MEDS: Acetaminophen 500 MG TAB PO SCH ×4 (01:15→17:26)
[2021-10-26] MEDS: Ketorolac Tromethamine 30 MG/ML VIAL IVP SCH ×3 (05:33→17:26)
[2021-10-26] MEDS: Piperacillin/Tazobactam 3.375 GM in Sodium Chloride 0.9% 100 ML IVPB SCH ×3 (06:05→22:06)
[2021-10-26 06:44] LABS: ALT (SGPT) Less than 7 U/L (8-55); AST (SGOT) 16 U/L (5-34); Albumin 2.5 g/dL (3.5-5.0); Alkaline Phosphatase 90 U/L (40-110); Anion Gap 9 mmol/L (10-20); BUN (Urea Nitrogen) 9 mg/dL (9.8-20.1); Bilirubin, Total 0.5 mg/dL (0.2-1.2); Calc. Creatinine Clearance 150 mL/min (70-130); Calcium 8.5 mg/dL (7.8-10.44); Carbon Dioxide 33 mmol/L (22-29); Chloride 101 mmol/L (98-107); Globulin 2.6 g/dL (2.4-3.5); Glucose 96 mg/dL (70-105); Potassium 3.4 mmol/L (3.5-5.1); Protein, Total 5.1 g/dL (6.0-8.3); Sodium 140 mmol/L (136-145)
[2021-10-26 06:46] LABS: Hemoglobin 9.7 g/dL (12.0-16.0); Mean Corpuscular HGB CONC 31.7 g/dL (32.0-36.0); Mean Corpuscular Hemoglobin 30.7 pg (27.0-31.0); Mean Corpuscular Volume 96.8 fL (78.0-98.0); Mean Platelet Volume 6.3 fL (7.4-10.4); Platelet Count 386 thou/uL (130-400); RBC Distribution Width 13.6 % (11.5-14.5); Red Blood Cell (RBC) Count 3.17 mill/uL (4.20-5.40); White Blood Cell (WBC) Count 20.8 thou/uL (4.8-10.8)
[2021-10-26] MEDS ORDERED: Potassium Chloride 20 MEQ TAB PO SCH (07:00)
[2021-10-26 07:37] LABS: Band 21 % (5-11); Eosinophils 1 % (0-10); Lymphocytes 12 % (21-51); MDiff Complete? YES; Metamyelocyte 2 % (0-0); Monocytes 7 % (0-10); Myelocyte 1 % (0-0); Neutrophil 56 % (42-75); Platelet Morphology Comment Appears Adequate; Polychromasia SLIGHT = 2-3 cells (100X) (0-2/hpf)
[2021-10-26] MEDS: Ascorbic Acid 500 mg Chewable Tablet PO SCH (08:13)
[2021-10-26] MEDS: PARoxetine 20 MG TAB PO SCH (08:14)
[2021-10-26] MEDS: Multivitamin W/ Minerals 1 TAB PO SCH (08:14)
[2021-10-26] MEDS: Lurasidone 20 MG TABLET PO SCH (08:14)
[2021-10-26] MEDS: Lithium Carbonate 150 MG CAP PO SCH ×3 (08:15→17:27)
[2021-10-26] MEDS: Lactated Ringer's 1,000 ML IV SCH ×2 (08:15→21:45)
[2021-10-26] MEDS: Potassium Chloride 20 MEQ in Premix Bag 1 BAG IVPB SCH ×2 (09:10→10:26)
[2021-10-26 11:14] LABS: SARS-CoV-2 PCR by NAA Not Detected (NotDetected)
[2021-10-26] MEDS ORDERED: Acetaminophen 500 MG TAB PO PRN (19:46)
[2021-10-26] MEDS: Enoxaparin Sodium 40 MG/0.4 ML SYRINGE SC SCH (21:45)
[2021-10-26] MEDS: Lorazepam 0.5 MG TAB PO SCH (21:46)
[2021-10-27] MEDS: Ketorolac Tromethamine 30 MG/ML VIAL IVP SCH ×3 (00:17→13:21)
[2021-10-27] MEDS: Piperacillin/Tazobactam 3.375 GM in Sodium Chloride 0.9% 100 ML IVPB SCH ×3 (06:06→23:39)
[2021-10-27 07:10] LABS: Hemoglobin 8.9 g/dL (12.0-16.0); Mean Corpuscular HGB CONC 30.3 g/dL (32.0-36.0); Mean Corpuscular Hemoglobin 29.7 pg (27.0-31.0); Mean Corpuscular Volume 98.1 fL (78.0-98.0); Mean Platelet Volume 6.4 fL (7.4-10.4); Platelet Count 403 thou/uL (130-400); RBC Distribution Width 13.8 % (11.5-14.5); Red Blood Cell (RBC) Count 2.99 mill/uL (4.20-5.40); White Blood Cell (WBC) Count 21.1 thou/uL (4.8-10.8)
[2021-10-27 07:29] LABS: ALT (SGPT) 10 U/L (8-55); AST (SGOT) 25 U/L (5-34); Albumin 2.4 g/dL (3.5-5.0); Alkaline Phosphatase 100 U/L (40-110); Anion Gap 8 mmol/L (10-20); BUN (Urea Nitrogen) 8 mg/dL (9.8-20.1); Bilirubin, Total 0.4 mg/dL (0.2-1.2); Calc. Creatinine Clearance 137 mL/min (70-130); Calcium 8.8 mg/dL (7.8-10.44); Carbon Dioxide 33 mmol/L (22-29); Chloride 102 mmol/L (98-107); Globulin 2.7 g/dL (2.4-3.5); Glucose 100 mg/dL (70-105); Potassium 4.3 mmol/L (3.5-5.1); Protein, Total 5.1 g/dL (6.0-8.3); Sodium 139 mmol/L (136-145)
[2021-10-27 07:39] LABS: Band 9 % (5-11); Hypochromia SLIGHT = 6-15 cells (100X) (0-5/hpf); Lymphocytes 9 % (21-51); MDiff Complete? YES; Metamyelocyte 1 % (0-0); Monocytes 7 % (0-10); Neutrophil 73 % (42-75); Platelet Morphology Comment Appears Increased; Polychromasia SLIGHT = 2-3 cells (100X) (0-2/hpf); Reactive Lymphocytes 1 % (0-10)
[2021-10-27] MEDS: Lithium Carbonate 150 MG CAP PO SCH ×3 (08:10→18:08)
[2021-10-27] MEDS: Lurasidone 20 MG TABLET PO SCH (08:10)
[2021-10-27] MEDS: Lorazepam 1 MG TAB PO SCH ×2 (08:11→15:56)
[2021-10-27] MEDS: PARoxetine 20 MG TAB PO SCH (08:11)
[2021-10-27] MEDS: Amlodipine 5 MG TAB PO SCH (08:11)
[2021-10-27] MEDS: Multivitamin W/ Minerals 1 TAB PO SCH (08:11)
[2021-10-27] MEDS: Ascorbic Acid 500 mg Chewable Tablet PO SCH (08:12)
[2021-10-27] MEDS: Lactated Ringer's 1,000 ML IV SCH (08:14)
[2021-10-27] MEDS: HYDROcodone/Acetaminophen 7.5/325 mg Tablet PO PRN (09:42)
[2021-10-27] MEDS: Ibuprofen 600 MG TAB PO PRN (18:08)
[2021-10-27] MEDS: Enoxaparin Sodium 40 MG/0.4 ML SYRINGE SC SCH (19:59)
[2021-10-27] MEDS: Lorazepam 0.5 MG TAB PO SCH (20:00)
[2021-10-28] MEDS: Ibuprofen 600 MG TAB PO PRN (04:15)
[2021-10-28 05:12] LABS: Band 16 % (5-11); Eosinophils 1 % (0-10); Hemoglobin 9.4 g/dL (12.0-16.0); Hypochromia SLIGHT = 6-15 cells (100X) (0-5/hpf); Lymphocytes 11 % (21-51); MDiff Complete? YES; Mean Corpuscular Hemoglobin 30.3 pg (27.0-31.0); Mean Corpuscular Volume 97.8 fL (78.0-98.0); Mean Platelet Volume 6.4 fL (7.4-10.4); Monocytes 6 % (0-10); Neutrophil 66 % (42-75); Platelet Count 426 thou/uL (130-400); Platelet Morphology Comment Appears Increased; RBC Distribution Width 13.8 % (11.5-14.5); White Blood Cell (WBC) Count 20.6 thou/uL (4.8-10.8)
[2021-10-28] MEDS: Piperacillin/Tazobactam 3.375 GM in Sodium Chloride 0.9% 100 ML IVPB SCH ×3 (06:11→23:10)
[2021-10-28] MEDS: Lurasidone 20 MG TABLET PO SCH (09:05)
[2021-10-28] MEDS: Multivitamin W/ Minerals 1 TAB PO SCH (09:06)
[2021-10-28] MEDS: Amlodipine 5 MG TAB PO SCH (09:06)
[2021-10-28] MEDS: PARoxetine 20 MG TAB PO SCH (09:06)
[2021-10-28] MEDS: Ascorbic Acid 500 mg Chewable Tablet PO SCH (09:06)
[2021-10-28] MEDS: Lithium Carbonate 150 MG CAP PO SCH ×3 (09:07→17:29)
[2021-10-28] MEDS: Lorazepam 1 MG TAB PO SCH ×2 (09:07→14:21)
[2021-10-28] MEDS: HYDROcodone/Acetaminophen 7.5/325 mg Tablet PO PRN (17:29)
[2021-10-28] MEDS: Enoxaparin Sodium 40 MG/0.4 ML SYRINGE SC SCH (20:44)
[2021-10-28] MEDS: Lorazepam 0.5 MG TAB PO SCH (20:45)
[2021-10-28] MEDS: Polyethylene Glycol 3350 17 GM Packet PO SCH (20:45)
[2021-10-29] MEDS: Piperacillin/Tazobactam 3.375 GM in Sodium Chloride 0.9% 100 ML IVPB SCH ×3 (05:32→23:20)
[2021-10-29] MEDS: Polyethylene Glycol 3350 17 GM Packet PO SCH ×2 (09:40→20:15)
[2021-10-29] MEDS: Ascorbic Acid 500 mg Chewable Tablet PO SCH (09:40)
[2021-10-29] MEDS: Lurasidone 20 MG TABLET PO SCH (09:40)
[2021-10-29] MEDS: Amlodipine 5 MG TAB PO SCH (09:41)
[2021-10-29] MEDS: Lithium Carbonate 150 MG CAP PO SCH ×3 (09:41→17:34)
[2021-10-29] MEDS: PARoxetine 20 MG TAB PO SCH (09:41)
[2021-10-29] MEDS: Lorazepam 1 MG TAB PO SCH ×2 (09:41→13:45)
[2021-10-29] MEDS: HYDROcodone/Acetaminophen 7.5/325 mg Tablet PO PRN (09:42)
[2021-10-29] MEDS: Multivitamin W/ Minerals 1 TAB PO SCH (09:42)
[2021-10-29] MEDS ORDERED: Piperacillin/Tazobactam 3.375 GM VIAL ONE (13:46)
[2021-10-29] MEDS ORDERED: Sodium Chloride 0.9% 100 ML ONE (13:47)
[2021-10-29] MEDS ORDERED: Ondansetron PF 4 MG/2 ML Vial ONE (13:52)
[2021-10-29] MEDS ORDERED: Vecuronium 10 MG VIAL ONE (13:52)
[2021-10-29] MEDS ORDERED: Rocuronium Bromide 10 MG/ML (10ML VIAL) ONE ×2 (13:52)
[2021-10-29] MEDS ORDERED: GLYCOPYRROLATE/PF 0.2 MG/ML VIAL ONE (13:52)
[2021-10-29] MEDS ORDERED: Dexamethasone 20 MG/5 ML VIAL ONE (13:52)
[2021-10-29] MEDS ORDERED: PHENYLEPHRINE-NS 100 MCG/ML 10 ML SYRINGE ONE ×2 (13:52→15:28)
[2021-10-29] MEDS ORDERED: PROPOFOL 200 MG/20 ML VIAL ONE (13:52)
[2021-10-29] MEDS ORDERED: Xylocaine 1% w/ Epi 1:100K 10 ML VIAL ONE ×2 (14:33→14:36)
[2021-10-29] MEDS ORDERED: Bupivacaine 0.25% HCL 30 ML VIAL ONE (14:33)
[2021-10-29] MEDS ORDERED: Naloxone HCl 0.4 mg/ml Vial IV PRN (18:00)
[2021-10-29] MEDS ORDERED: Communication Order-Pharmacy FS SCH (18:00)
[2021-10-29] MEDS ORDERED: Promethazine HCl 25 MG/ML VIAL IM PRN (18:22)
[2021-10-29] MEDS ORDERED: Promethazine HCl 25 MG/ML VIAL IVPB PRN (18:22)
[2021-10-29] MEDS ORDERED: Ondansetron HCl/PF 4 MG/2 ML Vial IVP PRN (18:22)
[2021-10-29] MEDS: Ketorolac Tromethamine 30 MG/ML VIAL IVP SCH ×2 (18:35→23:20)
[2021-10-29] MEDS ORDERED: Fentanyl 250 MCG/5 ML VIAL ONE (18:46)
[2021-10-29] MEDS: Enoxaparin Sodium 40 MG/0.4 ML SYRINGE SC SCH (20:14)
[2021-10-30 04:45] LABS: Band 17 % (5-11); Hemoglobin 10.2 g/dL (12.0-16.0); Lymphocytes 4 % (21-51); MDiff Complete? YES; Mean Corpuscular HGB CONC 32.1 g/dL (32.0-36.0); Mean Corpuscular Hemoglobin 30.6 pg (27.0-31.0); Mean Corpuscular Volume 95.3 fL (78.0-98.0); Mean Platelet Volume 6.3 fL (7.4-10.4); Metamyelocyte 1 % (0-0); Monocytes 6 % (0-10); Myelocyte 1 % (0-0); Neutrophil 71 % (42-75); Platelet Count 494 thou/uL (130-400); Platelet Morphology Comment Appears Increased; RBC Distribution Width 13.8 % (11.5-14.5); Red Blood Cell (RBC) Count 3.35 mill/uL (4.20-5.40); White Blood Cell (WBC) Count 37.5 thou/uL (4.8-10.8)
[2021-10-30 05:00] LABS: ALT (SGPT) 41 U/L (8-55); AST (SGOT) 57 U/L (5-34); Albumin 2.4 g/dL (3.5-5.0); Alkaline Phosphatase 122 U/L (40-110); Anion Gap 13 mmol/L (10-20); BUN (Urea Nitrogen) 9 mg/dL (9.8-20.1); Bilirubin, Total 0.5 mg/dL (0.2-1.2); Calc. Creatinine Clearance 81 mL/min (70-130); Calcium 7.9 mg/dL (7.8-10.44); Carbon Dioxide 27 mmol/L (22-29); Chloride 104 mmol/L (98-107); Globulin 2.8 g/dL (2.4-3.5); Glucose 169 mg/dL (70-105); Potassium 4.9 mmol/L (3.5-5.1); Protein, Total 5.2 g/dL (6.0-8.3); Sodium 139 mmol/L (136-145)
[2021-10-30] MEDS: Ketorolac Tromethamine 30 MG/ML VIAL IVP SCH ×4 (05:18→23:32)
[2021-10-30] MEDS: Piperacillin/Tazobactam 3.375 GM in Sodium Chloride 0.9% 100 ML IVPB SCH ×3 (05:35→23:31)
[2021-10-30] MEDS ORDERED: Sodium Chloride 0.9% 1,000 ML IV SCH (08:00)
[2021-10-30] MEDS: Lithium Carbonate 150 MG CAP PO SCH ×3 (09:47→16:13)
[2021-10-30] MEDS: Amlodipine 5 MG TAB PO SCH (09:49)
[2021-10-30] MEDS: Lurasidone 20 MG TABLET PO SCH (09:49)
[2021-10-30] MEDS: Ascorbic Acid 500 mg Chewable Tablet PO SCH (09:49)
[2021-10-30] MEDS: Polyethylene Glycol 3350 17 GM Packet PO SCH ×2 (09:51→20:31)
[2021-10-30] MEDS: Multivitamin W/ Minerals 1 TAB PO SCH (09:51)
[2021-10-30] MEDS: PARoxetine 20 MG TAB PO SCH (09:51)
[2021-10-30] MEDS ORDERED: Sodium Chloride 0.9% 500 ML IV SCH (11:45)
[2021-10-30] MEDS: Sodium Chloride 0.9% 1,000 ML IV SCH ×2 (12:26→16:25)
[2021-10-30 12:27] LABS: Hemoglobin 8.8 g/dL (12.0-16.0); Mean Corpuscular HGB CONC 30.5 g/dL (32.0-36.0); Mean Corpuscular Hemoglobin 29.1 pg (27.0-31.0); Mean Corpuscular Volume 95.3 fL (78.0-98.0); Mean Platelet Volume 6.3 fL (7.4-10.4); Platelet Count 519 thou/uL (130-400); RBC Distribution Width 13.8 % (11.5-14.5); Red Blood Cell (RBC) Count 3.02 mill/uL (4.20-5.40); White Blood Cell (WBC) Count 31.4 thou/uL (4.8-10.8)
[2021-10-30 13:02] LABS: Band 18 % (5-11); Lymphocytes 7 % (21-51); MDiff Complete? YES; Monocytes 7 % (0-10); Myelocyte 1 % (0-0); Neutrophil 67 % (42-75); Platelet Morphology Comment Appears Increased; Polychromasia SLIGHT = 2-3 cells (100X) (0-2/hpf)
[2021-10-30] MEDS: Enoxaparin Sodium 40 MG/0.4 ML SYRINGE SC SCH (20:41)
[2021-10-30] MEDS: Ondansetron PF 4 MG/2 ML Vial IVP PRN (20:42)
[2021-10-31 04:42] LABS: Anion Gap 12 mmol/L (10-20); BUN (Urea Nitrogen) 10 mg/dL (9.8-20.1); Calc. Creatinine Clearance 119 mL/min (70-130); Calcium 7.9 mg/dL (7.8-10.44); Carbon Dioxide 28 mmol/L (22-29); Chloride 106 mmol/L (98-107); Glucose 107 mg/dL (70-105); Magnesium 2.4 mg/dL (1.6-2.6); Phosphorus 2.5 mg/dL (2.3-4.7); Potassium 3.8 mmol/L (3.5-5.1); Sodium 142 mmol/L (136-145)
[2021-10-31] MEDS: Sodium Chloride 0.9% 1,000 ML IV SCH ×2 (05:53→05:58)
[2021-10-31] MEDS: Ketorolac Tromethamine 30 MG/ML VIAL IVP SCH ×3 (05:57→18:22)
[2021-10-31] MEDS: Piperacillin/Tazobactam 3.375 GM in Sodium Chloride 0.9% 100 ML IVPB SCH ×3 (05:58→23:27)
[2021-10-31 06:03] LABS: Band 5 % (5-11); Eosinophils 1 % (0-10); Hemoglobin 7.9 g/dL (12.0-16.0); Lymphocytes 5 % (21-51); MDiff Complete? YES; Mean Corpuscular Hemoglobin 30.8 pg (27.0-31.0); Mean Corpuscular Volume 96.3 fL (78.0-98.0); Mean Platelet Volume 6.3 fL (7.4-10.4); Monocytes 5 % (0-10); Myelocyte 2 % (0-0); Neutrophil 82 % (42-75); Platelet Count 420 thou/uL (130-400); Platelet Morphology Comment Appears Increased; RBC Distribution Width 13.6 % (11.5-14.5); RBC Morphology Normal; Red Blood Cell (RBC) Count 2.56 mill/uL (4.20-5.40); White Blood Cell (WBC) Count 27.6 thou/uL (4.8-10.8)
[2021-10-31] MEDS: fentaNYL Citrate/PF 2,000 MCG in Sodium Chloride 0.9% 60 ML IV PRN (06:47)
[2021-10-31] MEDS: PARoxetine 20 MG TAB PO SCH (09:05)
[2021-10-31] MEDS: Amlodipine 5 MG TAB PO SCH (09:06)
[2021-10-31] MEDS: Ondansetron PF 4 MG/2 ML Vial IVP PRN ×2 (09:06→20:49)
[2021-10-31] MEDS: Ascorbic Acid 500 mg Chewable Tablet PO SCH (09:06)
[2021-10-31] MEDS: Multivitamin W/ Minerals 1 TAB PO SCH (09:06)
[2021-10-31] MEDS: Lurasidone 20 MG TABLET PO SCH (09:06)
[2021-10-31] MEDS: Lithium Carbonate 150 MG CAP PO SCH ×3 (09:06→18:22)
[2021-10-31] MEDS: Polyethylene Glycol 3350 17 GM Packet PO SCH ×2 (09:10→20:46)
[2021-10-31] MEDS ORDERED: Dextrose 5% in Water 1,000 ML IV PRN (09:14)
[2021-10-31] MEDS ORDERED: Dextrose 50% Abboject 50 ML SYRINGE SLOW IVP PRN (09:14)
[2021-10-31] MEDS: Promethazine HCl 25 MG/ML VIAL IM PRN ×2 (12:43→23:52)
[2021-10-31] MEDS: Multivitamins, Adult 10 ML, TRACE ELEMENT CONCENTRATE 1 ML in D15W-AA 5% w/o Lytes 2,00... IV SCH (14:49)
[2021-10-31] MEDS: Fat Emulsion 250 ML IVPB SCH (14:49)
[2021-10-31] MEDS: Lactated Ringer's 1,000 ML IV SCH ×3 (16:44→23:27)
[2021-10-31] MEDS: Enoxaparin Sodium 40 MG/0.4 ML SYRINGE SC SCH (20:49)
[2021-10-31] MEDS: HumaLOG 300 UNITS/3 ML VIAL SC PRN (23:52)
[2021-10-31] MEDS ORDERED: Ibuprofen 600 MG TAB PO PRN (23:59)
[2021-11-01 06:02] LABS: Hemoglobin 7.7 g/dL (12.0-16.0); MDiff Complete? YES; Mean Corpuscular HGB CONC 30.9 g/dL (32.0-36.0); Mean Corpuscular Volume 97.2 fL (78.0-98.0); Mean Platelet Volume 6.2 fL (7.4-10.4); Platelet Count 513 thou/uL (130-400); RBC Distribution Width 13.7 % (11.5-14.5); Red Blood Cell (RBC) Count 2.58 mill/uL (4.20-5.40); White Blood Cell (WBC) Count 30.7 thou/uL (4.8-10.8)
[2021-11-01 06:03] LABS: Band 3 % (5-11); Hypochromia SLIGHT = 6-15 cells (100X) (0-5/hpf); Lymphocytes 9 % (21-51); Monocytes 7 % (0-10); Neutrophil 81 % (42-75); Platelet Morphology Comment Appears Increased
[2021-11-01 06:07] LABS: ALT (SGPT) 18 U/L (8-55); AST (SGOT) 15 U/L (5-34); Albumin 2.4 g/dL (3.5-5.0); Alkaline Phosphatase 88 U/L (40-110); Anion Gap 10 mmol/L (10-20); BUN (Urea Nitrogen) 10 mg/dL (9.8-20.1); Bilirubin, Total 0.2 mg/dL (0.2-1.2); Calc. Creatinine Clearance 143 mL/min (70-130); Calcium 8.1 mg/dL (7.8-10.44); Carbon Dioxide 30 mmol/L (22-29); Chloride 102 mmol/L (98-107); Globulin 2.9 g/dL (2.4-3.5); Glucose 165 mg/dL (70-105); Potassium 3.4 mmol/L (3.5-5.1); Protein, Total 5.3 g/dL (6.0-8.3); Sodium 139 mmol/L (136-145)
[2021-11-01] MEDS: HumaLOG 300 UNITS/3 ML VIAL SC PRN ×2 (06:12→23:35)
[2021-11-01] MEDS: Piperacillin/Tazobactam 3.375 GM in Sodium Chloride 0.9% 100 ML IVPB SCH ×3 (06:12→23:30)
[2021-11-01] MEDS: Lactated Ringer's 1,000 ML IV SCH ×3 (06:12→18:44)
[2021-11-01] MEDS: Ascorbic Acid 500 mg Chewable Tablet PO SCH (09:24)
[2021-11-01] MEDS: Lithium Carbonate 150 MG CAP PO SCH ×3 (09:24→16:01)
[2021-11-01] MEDS: Multivitamin W/ Minerals 1 TAB PO SCH (09:24)
[2021-11-01] MEDS: Lurasidone 20 MG TABLET PO SCH (09:24)
[2021-11-01] MEDS: PARoxetine 20 MG TAB PO SCH (09:25)
[2021-11-01] MEDS: Amlodipine 5 MG TAB PO SCH (09:25)
[2021-11-01] MEDS: Promethazine HCl 25 MG/ML VIAL IM PRN (10:02)
[2021-11-01] MEDS: Polyethylene Glycol 3350 17 GM Packet PO SCH ×2 (10:10→20:41)
[2021-11-01] MEDS: Multivitamins, Adult 10 ML, TRACE ELEMENT CONCENTRATE 1 ML in D15W-AA 5% w/o Lytes 2,00... IV SCH (14:09)
[2021-11-01] MEDS: Enoxaparin Sodium 40 MG/0.4 ML SYRINGE SC SCH (20:41)
[2021-11-02 05:52] LABS: Hemoglobin 7.6 g/dL (12.0-16.0); Mean Corpuscular HGB CONC 30.9 g/dL (32.0-36.0); Mean Corpuscular Hemoglobin 29.8 pg (27.0-31.0); Mean Corpuscular Volume 96.4 fL (78.0-98.0); Mean Platelet Volume 6.1 fL (7.4-10.4); Platelet Count 572 thou/uL (130-400); RBC Distribution Width 13.6 % (11.5-14.5); Red Blood Cell (RBC) Count 2.57 mill/uL (4.20-5.40); White Blood Cell (WBC) Count 22.3 thou/uL (4.8-10.8)
[2021-11-02] MEDS: Lactated Ringer's 1,000 ML IV SCH ×2 (05:59→06:02)
[2021-11-02] MEDS: Piperacillin/Tazobactam 3.375 GM in Sodium Chloride 0.9% 100 ML IVPB SCH ×2 (06:01→15:50)
[2021-11-02 06:06] LABS: ALT (SGPT) 14 U/L (8-55); AST (SGOT) 17 U/L (5-34); Albumin 2.4 g/dL (3.5-5.0); Alkaline Phosphatase 87 U/L (40-110); Anion Gap 8 mmol/L (10-20); BUN (Urea Nitrogen) 9 mg/dL (9.8-20.1); Bilirubin, Total 0.2 mg/dL (0.2-1.2); Calc. Creatinine Clearance 158 mL/min (70-130); Calcium 8.1 mg/dL (7.8-10.44); Carbon Dioxide 32 mmol/L (22-29); Chloride 102 mmol/L (98-107); Globulin 2.8 g/dL (2.4-3.5); Glucose 152 mg/dL (70-105); Protein, Total 5.2 g/dL (6.0-8.3); Sodium 139 mmol/L (136-145)
[2021-11-02 06:13] LABS: Potassium 2.9 mmol/L (3.5-5.1)
[2021-11-02] MEDS ORDERED: Electrolyte Replacement Protocol 1 EACH FS SCH (06:30)
[2021-11-02 06:50] LABS: Band 10 % (5-11); Eosinophils 2 % (0-10); Hypochromia MODERATE=16-30 cells (100X) (0-5/hpf); Lymphocytes 5 % (21-51); MDiff Complete? YES; Metamyelocyte 2 % (0-0); Monocytes 6 % (0-10); Myelocyte 6 % (0-0); Neutrophil 68 % (42-75); Platelet Morphology Comment Appears Decreased; Polychromasia SLIGHT = 2-3 cells (100X) (0-2/hpf); Reactive Lymphocytes 1 % (0-10); Stomatocytes SLIGHT = 2-5 cells (100X) (0-1/hpf)
[2021-11-02 07:20] LABS: Magnesium 1.8 mg/dL (1.6-2.6)
[2021-11-02] MEDS: PARoxetine 20 MG TAB PO SCH (08:30)
[2021-11-02] MEDS: Multivitamin W/ Minerals 1 TAB PO SCH (08:30)
[2021-11-02] MEDS: Lurasidone 20 MG TABLET PO SCH (08:31)
[2021-11-02] MEDS: Amlodipine 5 MG TAB PO SCH (08:31)
[2021-11-02] MEDS: Lithium Carbonate 150 MG CAP PO SCH ×3 (08:31→17:33)
[2021-11-02] MEDS: Ascorbic Acid 500 mg Chewable Tablet PO SCH (08:31)
[2021-11-02] MEDS: Potassium Chloride 20 MEQ in Premix Bag 1 BAG IVPB SCH ×4 (08:32→14:20)
[2021-11-02] MEDS: Polyethylene Glycol 3350 17 GM Packet PO SCH ×2 (08:42→22:55)
[2021-11-02] MEDS ORDERED: Magnesium 2 GM/50 ML 2 GM in Premix Bag 1 BAG IVPB SCH (09:00)
[2021-11-02] MEDS: Ondansetron PF 4 MG/2 ML Vial IVP PRN (11:52)
[2021-11-02 11:53] LABS: SARS-CoV-2 PCR by NAA Not Detected (NotDetected)
[2021-11-02] MEDS: HumaLOG 300 UNITS/3 ML VIAL SC PRN ×2 (12:23→17:47)
[2021-11-02] MEDS: Multivitamins, Adult 10 ML, TRACE ELEMENT CONCENTRATE 1 ML in D15W-AA 5% w/o Lytes 2,00... IV SCH (14:19)
[2021-11-02] MEDS: Fat Emulsion 250 ML IVPB SCH (14:19)
[2021-11-02] MEDS: fentaNYL Citrate/PF 2,000 MCG in Sodium Chloride 0.9% 60 ML IV PRN (17:40)
[2021-11-02 18:54] LABS: Potassium 3.5 mmol/L (3.5-5.1)
[2021-11-02] MEDS: Enoxaparin Sodium 40 MG/0.4 ML SYRINGE SC SCH (20:32)
[2021-11-03] MEDS: HumaLOG 300 UNITS/3 ML VIAL SC PRN ×2 (00:18→05:52)
[2021-11-03] MEDS: Piperacillin/Tazobactam 3.375 GM in Sodium Chloride 0.9% 100 ML IVPB SCH ×4 (00:18→23:17)
[2021-11-03 06:27] LABS: Hemoglobin 8.2 g/dL (12.0-16.0); Mean Corpuscular HGB CONC 32.4 g/dL (32.0-36.0); Mean Corpuscular Volume 95.6 fL (78.0-98.0); Platelet Count 686 thou/uL (130-400); RBC Distribution Width 13.9 % (11.5-14.5)
[2021-11-03 06:41] LABS: Anion Gap 9 mmol/L (10-20); BUN (Urea Nitrogen) 11 mg/dL (9.8-20.1); Calc. Creatinine Clearance 161 mL/min (70-130); Calcium 8.4 mg/dL (7.8-10.44); Carbon Dioxide 33 mmol/L (22-29); Chloride 100 mmol/L (98-107); Glucose 158 mg/dL (70-105); Magnesium 2.1 mg/dL (1.6-2.6); Potassium 3.2 mmol/L (3.5-5.1); Sodium 139 mmol/L (136-145)
[2021-11-03 06:42] LABS: Band 2 % (5-11); Eosinophils 2 % (0-10); Hypochromia SLIGHT = 6-15 cells (100X) (0-5/hpf); Lymphocytes 14 % (21-51); MDiff Complete? YES; Monocytes 5 % (0-10); Neutrophil 77 % (42-75); Platelet Morphology Comment Appears Increased; Red Blood Cell (RBC) Count 2.65 mill/uL (4.20-5.40); White Blood Cell (WBC) Count 21.5 thou/uL (4.8-10.8)
[2021-11-03] MEDS: Potassium Chloride 20 MEQ in Premix Bag 1 BAG IVPB SCH ×2 (10:50→10:51)
[2021-11-03] MEDS: Polyethylene Glycol 3350 17 GM Packet PO SCH ×2 (10:52→21:31)
[2021-11-03] MEDS: PARoxetine 20 MG TAB PO SCH (10:52)
[2021-11-03] MEDS: Ascorbic Acid 500 mg Chewable Tablet PO SCH (10:52)
[2021-11-03] MEDS: Lurasidone 20 MG TABLET PO SCH (10:52)
[2021-11-03] MEDS: Amlodipine 5 MG TAB PO SCH ×2 (10:52→21:31)
[2021-11-03] MEDS: Multivitamin W/ Minerals 1 TAB PO SCH (10:52)
[2021-11-03] MEDS: Lithium Carbonate 150 MG CAP PO SCH ×3 (11:03→15:57)
[2021-11-03] MEDS: Multivitamins, Adult 10 ML, TRACE ELEMENT CONCENTRATE 1 ML in D15W-AA 5% w/o Lytes 2,00... IV SCH (14:30)
[2021-11-03] MEDS ORDERED: Lactated Ringer's 1,000 ML IV SCH (15:03)
[2021-11-03] MEDS: Enoxaparin Sodium 40 MG/0.4 ML SYRINGE SC SCH (21:30)
[2021-11-03] MEDS: Ondansetron PF 4 MG/2 ML Vial IVP PRN (21:42)
[2021-11-04] MEDS: Piperacillin/Tazobactam 3.375 GM in Sodium Chloride 0.9% 100 ML IVPB SCH ×3 (06:03→22:50)
[2021-11-04 06:28] LABS: Hemoglobin 7.7 g/dL (12.0-16.0); Mean Corpuscular Hemoglobin 30.7 pg (27.0-31.0); Mean Corpuscular Volume 95.8 fL (78.0-98.0); Platelet Count 639 thou/uL (130-400); RBC Distribution Width 14.9 % (11.5-14.5); Red Blood Cell (RBC) Count 2.52 mill/uL (4.20-5.40)
[2021-11-04 06:45] LABS: Band 3 % (5-11); Eosinophils 2 % (0-10); Lymphocytes 8 % (21-51); MDiff Complete? YES; Monocytes 10 % (0-10); Myelocyte 1 % (0-0); Neutrophil 76 % (42-75); Nucleated RBC 2 % (0); Polychromasia SLIGHT = 2-3 cells (100X) (0-2/hpf)
[2021-11-04 06:50] LABS: Anion Gap 8 mmol/L (10-20); BUN (Urea Nitrogen) 14 mg/dL (9.8-20.1); Calc. Creatinine Clearance 166 mL/min (70-130); Calcium 8.1 mg/dL (7.8-10.44); Carbon Dioxide 35 mmol/L (22-29); Chloride 98 mmol/L (98-107); Glucose 139 mg/dL (70-105); Magnesium 1.8 mg/dL (1.6-2.6); Sodium 138 mmol/L (136-145)
[2021-11-04] MEDS ORDERED: Magnesium 2 GM/50 ML 2 GM in Premix Bag 1 BAG IVPB SCH (08:00)
[2021-11-04] MEDS ORDERED: Potassium Chloride 20 MEQ TAB PO SCH ×2 (08:00→10:30)
[2021-11-04] MEDS: Ascorbic Acid 500 mg Chewable Tablet PO SCH ×2 (08:40→09:29)
[2021-11-04] MEDS: Multivitamin W/ Minerals 1 TAB PO SCH (08:41)
[2021-11-04] MEDS: Lithium Carbonate 150 MG CAP PO SCH ×3 (08:42→16:44)
[2021-11-04] MEDS: Lurasidone 20 MG TABLET PO SCH (08:45)
[2021-11-04] MEDS: PARoxetine 20 MG TAB PO SCH (08:47)
[2021-11-04] MEDS: Amlodipine 5 MG TAB PO SCH ×2 (08:48→21:35)
[2021-11-04] MEDS: Polyethylene Glycol 3350 17 GM Packet PO SCH (09:29)
[2021-11-04] MEDS: HumaLOG 300 UNITS/3 ML VIAL SC PRN (11:32)
[2021-11-04 13:59] LABS: Potassium 3.3 mmol/L (3.5-5.1)
[2021-11-04] MEDS: Fat Emulsion 250 ML IVPB SCH (14:01)
[2021-11-04] MEDS: Multivitamins, Adult 10 ML, TRACE ELEMENT CONCENTRATE 1 ML in D15W-AA 5% w/o Lytes 2,00... IV SCH (14:01)
[2021-11-04] MEDS: fentaNYL Citrate/PF 2,000 MCG in Sodium Chloride 0.9% 60 ML IV PRN (17:43)
[2021-11-04] MEDS ORDERED: Potassium Chloride 40 MEQ in Sodium Chloride 0.9% 250 ML 250 ML IVPB SCH (18:00)
[2021-11-04] MEDS: Enoxaparin Sodium 40 MG/0.4 ML SYRINGE SC SCH (21:36)
[2021-11-04] MEDS: Lorazepam 1 MG TAB PO PRN (22:52)
[2021-11-05] MEDS: Lactated Ringer's 1,000 ML IV SCH ×2 (03:31→03:32)
[2021-11-05 07:14] LABS: Anion Gap 10 mmol/L (10-20); BUN (Urea Nitrogen) 15 mg/dL (9.8-20.1); Calc. Creatinine Clearance 155 mL/min (70-130); Carbon Dioxide 29 mmol/L (22-29); Chloride 104 mmol/L (98-107); Glucose 138 mg/dL (70-105); Potassium 3.7 mmol/L (3.5-5.1); Sodium 139 mmol/L (136-145)
[2021-11-05 08:11] LABS: Band 13 % (5-11); Eosinophils 2 % (0-10); Hemoglobin 7.6 g/dL (12.0-16.0); Lymphocytes 16 % (21-51); MDiff Complete? YES; Mean Corpuscular Hemoglobin 31.2 pg (27.0-31.0); Mean Corpuscular Volume 97.4 fL (78.0-98.0); Mean Platelet Volume 6.1 fL (7.4-10.4); Metamyelocyte 1 % (0-0); Monocytes 10 % (0-10); Myelocyte 1 % (0-0); Neutrophil 56 % (42-75); Nucleated RBC 1 % (0); Platelet Count 623 thou/uL (130-400); Platelet Morphology Comment Appears Increased; Polychromasia MODERATE = 3-4 cells (100X) (0-2/hpf); RBC Distribution Width 15.1 % (11.5-14.5); Reactive Lymphocytes 1 % (0-10); Red Blood Cell (RBC) Count 2.45 mill/uL (4.20-5.40); Stomatocytes SLIGHT = 2-5 cells (100X) (0-1/hpf); Tear Drops SLIGHT = 2-5 cells (100X) (0-1/hpf); White Blood Cell (WBC) Count 13.9 thou/uL (4.8-10.8)
[2021-11-05] MEDS: Piperacillin/Tazobactam 3.375 GM in Sodium Chloride 0.9% 100 ML IVPB SCH ×3 (08:35→23:48)
[2021-11-05] MEDS: PARoxetine 20 MG TAB PO SCH (08:37)
[2021-11-05] MEDS: Amlodipine 5 MG TAB PO SCH ×2 (08:37→20:15)
[2021-11-05] MEDS: Lurasidone 20 MG TABLET PO SCH (08:37)
[2021-11-05] MEDS: Lithium Carbonate 150 MG CAP PO SCH ×3 (08:37→16:58)
[2021-11-05] MEDS: Multivitamins, Adult 10 ML, TRACE ELEMENT CONCENTRATE 1 ML in D15W-AA 5% w/o Lytes 2,00... IV SCH (14:18)
[2021-11-05] MEDS: Enoxaparin Sodium 40 MG/0.4 ML SYRINGE SC SCH (20:15)
[2021-11-06] MEDS: Piperacillin/Tazobactam 3.375 GM in Sodium Chloride 0.9% 100 ML IVPB SCH ×3 (06:04→23:52)
[2021-11-06 07:35] LABS: #Eosinphils 0.3 thou/uL (0.0-0.7); #Lymphocytes 1.8 thou/uL (1.20-3.40); #Monocytes 1.4 thou/uL (0.11-0.59); #Neutrophils 9.7 thou/uL (1.40-6.50); %Basophils 0.3 % (0.0-1.0); %Eosinophils 2.6 % (0.0-10.0); %Lymphocytes 13.5 % (21.0-51.0); %Monocytes 10.2 % (0.0-10.0); %Neutrophils 73.3 % (42.0-75.0); Hemoglobin 8.2 g/dL (12.0-16.0); Mean Corpuscular HGB CONC 30.4 g/dL (32.0-36.0); Mean Corpuscular Hemoglobin 29.7 pg (27.0-31.0); Mean Corpuscular Volume 97.8 fL (78.0-98.0); Mean Platelet Volume 6.4 fL (7.4-10.4); Platelet Count 579 thou/uL (130-400); RBC Distribution Width 15.6 % (11.5-14.5); Red Blood Cell (RBC) Count 2.74 mill/uL (4.20-5.40); White Blood Cell (WBC) Count 13.2 thou/uL (4.8-10.8)
[2021-11-06] MEDS: Lurasidone 20 MG TABLET PO SCH (08:10)
[2021-11-06] MEDS: Lithium Carbonate 150 MG CAP PO SCH ×3 (08:11→17:10)
[2021-11-06] MEDS: PARoxetine 20 MG TAB PO SCH (08:11)
[2021-11-06] MEDS: Amlodipine 5 MG TAB PO SCH ×2 (08:11→20:30)
[2021-11-06] MEDS: Lorazepam 1 MG TAB PO PRN (08:12)
[2021-11-06] MEDS: Multivitamins, Adult 10 ML, TRACE ELEMENT CONCENTRATE 1 ML in D15W-AA 5% w/o Lytes 2,00... IV SCH (14:34)
[2021-11-06] MEDS: fentaNYL Citrate/PF 2,000 MCG in Sodium Chloride 0.9% 60 ML IV PRN (18:43)
[2021-11-06] MEDS: Enoxaparin Sodium 40 MG/0.4 ML SYRINGE SC SCH (20:30)
[2021-11-07] MEDS: Lorazepam 1 MG TAB PO PRN (02:12)
[2021-11-07] MEDS: HumaLOG 300 UNITS/3 ML VIAL SC PRN (05:46)
[2021-11-07] MEDS: Piperacillin/Tazobactam 3.375 GM in Sodium Chloride 0.9% 100 ML IVPB SCH ×3 (06:21→23:09)
[2021-11-07] MEDS: Lurasidone 20 MG TABLET PO SCH (08:38)
[2021-11-07] MEDS: Amlodipine 5 MG TAB PO SCH ×2 (08:38→20:28)
[2021-11-07] MEDS: Lithium Carbonate 150 MG CAP PO SCH ×3 (08:38→17:13)
[2021-11-07] MEDS: PARoxetine 20 MG TAB PO SCH (08:38)
[2021-11-07] MEDS ORDERED: Acetaminophen/Codeine 30-300mg Tablet PO PRN (10:18)
[2021-11-07] MEDS ORDERED: Ibuprofen 600 MG TAB PO PRN (10:21)
[2021-11-07] MEDS: Lorazepam 0.5 MG TAB PO SCH ×2 (14:49→20:28)
[2021-11-07] MEDS: Acetaminophen/Codeine 30-300mg Tablet PO PRN (15:54)
[2021-11-07] MEDS: Enoxaparin Sodium 40 MG/0.4 ML SYRINGE SC SCH (20:28)
[2021-11-08] MEDS: Piperacillin/Tazobactam 3.375 GM in Sodium Chloride 0.9% 100 ML IVPB SCH (06:11)
[2021-11-08] MEDS: Lurasidone 20 MG TABLET PO SCH (08:28)
[2021-11-08] MEDS: Amlodipine 5 MG TAB PO SCH (08:29)
[2021-11-08] MEDS: Lorazepam 0.5 MG TAB PO SCH ×2 (08:29→14:52)
[2021-11-08] MEDS: Lithium Carbonate 150 MG CAP PO SCH ×2 (08:30→12:42)
[2021-11-08] MEDS: PARoxetine 20 MG TAB PO SCH (08:30)
[2021-11-08] MEDS: Acetaminophen/Codeine 30-300mg Tablet PO PRN (08:57)
[2021-11-08] MEDS ORDERED: Atorvastatin Calcium 40 MG TAB PO SCH (09:00)
[2021-11-08 12:01] VITALS: BP 119/66; TEMP 98
== END 2021-11-08 15:45 | DRG 853 ==
LOC: ERS 21:15 → SURG A 10-19 06:22
PROVIDERS: ADMIT Specialist; ATTEND Internal Medicine
PROC: 3E03329 Introduction of Other Anti-infective into Peripheral Vein, Percutaneous Approach (ICD-10-PCS; 2021-10-19)
PROC: 0DBN0ZZ Excision of Sigmoid Colon, Open Approach (ICD-10-PCS; principal; 2021-10-21)
PROC: 0DBM0ZZ Excision of Descending Colon, Open Approach (ICD-10-PCS; 2021-10-21)
PROC: 0D1E0Z4 Bypass Large Intestine to Cutaneous, Open Approach (ICD-10-PCS; 2021-10-21)
PROC: 0D1E0Z4 Bypass Large Intestine to Cutaneous, Open Approach (ICD-10-PCS; 2021-10-29)
PROC: 0WQF0ZZ Repair Abdominal Wall, Open Approach (ICD-10-PCS; 2021-10-29)
PROC: 0DBG0ZZ Excision of Left Large Intestine, Open Approach (ICD-10-PCS; 2021-10-29)
DX: A41.9 Sepsis, unspecified organism (principal); K55.041 Focal (segmental) acute infarction of large intestine; K55.039 Acute (reversible) ischemia of large intestine, extent unspecified; K65.1 Peritoneal abscess; K91.89 Other postprocedural complications and disorders of digestive system; K56.7 Ileus, unspecified; N17.9 Acute kidney failure, unspecified; K57.20 Diverticulitis of large intestine with perforation and abscess without bleeding; G93.40 Encephalopathy, unspecified; K63.3 Ulcer of intestine; Z20.822 Contact with and (suspected) exposure to COVID-19; F41.9 Anxiety disorder, unspecified; F31.9 Bipolar disorder, unspecified; K52.9 Noninfective gastroenteritis and colitis, unspecified; E66.9 Obesity, unspecified; D64.9 Anemia, unspecified; E78.5 Hyperlipidemia, unspecified; R07.9 Chest pain, unspecified; E87.6 Hypokalemia; Z88.5 Allergy status to narcotic agent; Z88.8 Allergy status to other drugs, medicaments and biological substances; Z87.891 Personal history of nicotine dependence; Z98.51 Tubal ligation status; Z68.33 Body mass index [BMI] 33.0-33.9, adult
CPT/HCPCS: 36415; 36416; 71045; 74018; 74019; 74022; 74177; 78452; 80048; 80053; 80178; 82550; 83690; 83735; 83880; 84100; 84484; 85025; 85610; 85730; 86850; 86900; 86901; 88307; 93005; 93017; 93306; 96361; 96365; 96375; 96376; A4649; A9500; C1776; C9113; J0153; J0171; J0360; J1100; J1170; J1650; J1815; J1885; J2060; J2250; J2405; J2543; J2550; J2704; J2765; J3010; J3475; J3480; J3490; J7030; J7050; J7120; Q0162; S0020; U0002; U0003; U0005

== ENCOUNTER 2022-02-03 07:00 | Inpatient (IN) | payer OTHER ==
[2022-02-08] MEDS ORDERED: Gabapentin 300 MG CAP ONE (09:39)
[2022-02-08] MEDS ORDERED: Acetaminophen 500 MG TAB ONE (09:39)
[2022-02-08] MEDS ORDERED: Fentanyl 100 MCG/2 ML VIAL ONE (09:41)
[2022-02-08] MEDS ORDERED: Midazolam HCl 2 mg/2 ml Vial ONE (09:41)
[2022-02-08] MEDS ORDERED: Ketorolac Tromethamine 30 MG/ML VIAL ONE (10:28)
[2022-02-08] MEDS ORDERED: fentaNYL Citrate/PF 100 MCG/2 ML SYRINGE ONE (11:03)
[2022-02-08] MEDS ORDERED: Phenylephrine 10 MG/ML VIAL ONE (11:03)
[2022-02-08] MEDS ORDERED: HYDROmorphone 0.5 MG/0.5 ML SYRINGE ONE (11:03)
[2022-02-08] MEDS ORDERED: Meropenem 2 GM in Sodium Chloride 0.9% 100 ML IVPB SCH (11:15)
[2022-02-08] MEDS ORDERED: Ondansetron PF 4 MG/2 ML Vial IVP PRN ×2 (11:24→14:57)
[2022-02-08] MEDS ORDERED: cefOXitin 2 GM VIAL ONE (11:24)
[2022-02-08] MEDS ORDERED: Sodium Chloride 0.9% 1,000 ML ONE (11:24)
[2022-02-08] MEDS ORDERED: hydrALAZINE 20 MG/ML VIAL SLOW IVP PRN (11:24)
[2022-02-08] MEDS ORDERED: Lidocaine 1% PF 5 ML VIAL ONE (11:26)
[2022-02-08] MEDS ORDERED: Dexamethasone 20 MG/5 ML VIAL ONE (11:26)
[2022-02-08] MEDS ORDERED: Bupivacaine HCl 0.5%/Epinephrine 1:200,000/PF 30 ml Vial ONE (11:26)
[2022-02-08] MEDS ORDERED: PROPOFOL 200 MG/20 ML VIAL ONE (11:26)
[2022-02-08] MEDS ORDERED: Ondansetron PF 4 MG/2 ML Vial ONE (11:26)
[2022-02-08] MEDS ORDERED: PHENYLEPHRINE-NS 100 MCG/ML 10 ML SYRINGE ONE (11:26)
[2022-02-08] MEDS ORDERED: Rocuronium Bromide 10 MG/ML (10ML VIAL) ONE (11:26)
[2022-02-08] MEDS ORDERED: Fentanyl 100 MCG/2 ML VIAL SLOW IVP PRN (11:38)
[2022-02-08] MEDS ORDERED: Lorazepam 1 MG TAB PO SCH (13:00)
[2022-02-08] MEDS ORDERED: SUGAMMADEX SODIUM 200 MG/2 ML VIAL ONE (14:19)
[2022-02-08] MEDS ORDERED: Succinylcholine 200 MG/10 ml SYRINGE FS ONE (14:19)
[2022-02-08] MEDS ORDERED: fentaNYL Citrate/PF 2,000 MCG in Sodium Chloride 0.9% 60 ML IV PRN (14:57)
[2022-02-08] MEDS ORDERED: Naloxone HCl 0.4 mg/ml Vial IV PRN (14:57)
[2022-02-08] MEDS ORDERED: diphenhydrAMINE 25 MG CAP PO PRN (14:57)
[2022-02-08] MEDS ORDERED: Promethazine HCl 25 MG/ML VIAL IM PRN ×2 (14:57)
[2022-02-08] MEDS ORDERED: Ondansetron HCl/PF 4 MG/2 ML Vial IVP PRN (14:57)
[2022-02-08] MEDS ORDERED: Zolpidem Tartrate 5 MG TAB PO PRN (14:57)
[2022-02-08] MEDS ORDERED: diphenhydrAMINE 50 MG/ML VIAL IM PRN (14:57)
[2022-02-08] MEDS ORDERED: Promethazine HCl 25 MG/ML VIAL IVPB PRN (14:57)
[2022-02-08] MEDS ORDERED: HYDROmorphone 2 MG/ML VIAL SLOW IVP PRN (14:57)
[2022-02-08] MEDS ORDERED: diphenhydrAMINE 50 MG/ML VIAL IVP PRN (14:57)
[2022-02-08] MEDS ORDERED: Communication Order-Pharmacy FS SCH (15:00)
[2022-02-08] MEDS ORDERED: D5 1/2 NS w/20 mEq KCL 1,000 ML ONE (15:41)
[2022-02-08] MEDS ORDERED: Lorazepam 0.5 MG TAB PO SCH (21:00)
[2022-02-08] MEDS: cefOXitin 2 GM in Sodium Chloride 0.9% 100 ML IVPB SCH (21:20)
[2022-02-08] MEDS: D5 1/2 NS w/20 mEq KCL 1,000 ML IV SCH (21:23)
[2022-02-08] MEDS: Gabapentin 100 MG CAP PO SCH ×2 (21:25)
[2022-02-08] MEDS: Famotidine 20 MG TAB PO SCH (21:25)
[2022-02-08] MEDS: Enoxaparin Sodium 40 MG/0.4 ML SYRINGE SC SCH (21:25)
[2022-02-08] MEDS: Amlodipine 5 MG TAB PO SCH (21:26)
[2022-02-08] MEDS: Famotidine/PF 20 mg/2ml Vial SLOW IVP SCH (22:42)
[2022-02-08 22:43] VITALS: BMI 31.7
[2022-02-09] MEDS: Acetaminophen 500 MG TAB PO SCH ×4 (00:21→14:18)
[2022-02-09] MEDS: Ketorolac Tromethamine 30 MG/ML VIAL IVP SCH ×6 (00:21→23:40)
[2022-02-09] MEDS: D5 1/2 NS w/20 mEq KCL 1,000 ML IV SCH ×5 (01:08→20:12)
[2022-02-09] MEDS: cefOXitin 2 GM in Sodium Chloride 0.9% 100 ML IVPB SCH (02:53)
[2022-02-09 06:16] LABS: Anion Gap 15 mmol/L (10-20); BUN (Urea Nitrogen) 26 mg/dL (9.8-20.1); Calc. Creatinine Clearance 55 mL/min (70-130); Carbon Dioxide 23 mmol/L (22-29); Chloride 108 mmol/L (98-107); Glucose 183 mg/dL (70-105); Potassium 4.8 mmol/L (3.5-5.1); Sodium 141 mmol/L (136-145)
[2022-02-09 06:27] LABS: Band 21 % (5-11); Hemoglobin 13.1 g/dL (12.0-16.0); Lymphocytes 2 % (21-51); MDiff Complete? YES; Mean Corpuscular HGB CONC 30.9 g/dL (32.0-36.0); Mean Corpuscular Hemoglobin 27.2 pg (27.0-31.0); Mean Corpuscular Volume 87.9 fL (78.0-98.0); Mean Platelet Volume 8.4 fL (7.4-10.4); Monocytes 9 % (0-10); Neutrophil 68 % (42-75); Platelet Count 249 thou/uL (130-400); Platelet Morphology Comment Appears Adequate; RBC Distribution Width 15.1 % (11.5-14.5); RBC Morphology Normal; Red Blood Cell (RBC) Count 4.83 mill/uL (4.20-5.40); White Blood Cell (WBC) Count 17.4 thou/uL (4.8-10.8)
[2022-02-09] MEDS: Amlodipine 5 MG TAB PO SCH ×2 (08:52→20:11)
[2022-02-09] MEDS: Gabapentin 100 MG CAP PO SCH ×3 (08:52→20:11)
[2022-02-09] MEDS: Famotidine/PF 20 mg/2ml Vial SLOW IVP SCH ×2 (08:57→20:12)
[2022-02-09] MEDS: Famotidine 20 MG TAB PO SCH ×2 (08:57→20:11)
[2022-02-09] MEDS ORDERED: Lurasidone HCl 40 MG TABLET PO SCH (09:00)
[2022-02-09] MEDS ORDERED: Lorazepam 0.5 MG TAB PO SCH (09:00)
[2022-02-09] MEDS ORDERED: Sodium Chloride 0.9% 500 ML IV SCH (09:15)
[2022-02-09] MEDS ORDERED: Lurasidone 20 MG TABLET PO SCH (09:30)
[2022-02-09] MEDS: Lurasidone 20 MG TABLET PO SCH (11:38)
[2022-02-09] MEDS: Enoxaparin Sodium 40 MG/0.4 ML SYRINGE SC SCH (20:11)
[2022-02-10] MEDS: D5 1/2 NS w/20 mEq KCL 1,000 ML IV SCH ×4 (03:41→23:20)
[2022-02-10] MEDS: Ketorolac Tromethamine 30 MG/ML VIAL IVP SCH ×4 (05:58→23:19)
[2022-02-10 06:06] LABS: #Lymphocytes 1.4 thou/uL (1.20-3.40); #Neutrophils 9.6 thou/uL (1.40-6.50); %Basophils 0.3 % (0.0-1.0); %Eosinophils 0.1 % (0.0-10.0); %Lymphocytes 11.9 % (21.0-51.0); %Monocytes 8.5 % (0.0-10.0); %Neutrophils 79.3 % (42.0-75.0); Hemoglobin 9.7 g/dL (12.0-16.0); Mean Corpuscular HGB CONC 31.5 g/dL (32.0-36.0); Mean Corpuscular Hemoglobin 28.2 pg (27.0-31.0); Mean Corpuscular Volume 89.7 fL (78.0-98.0); Mean Platelet Volume 8.6 fL (7.4-10.4); Platelet Count 158 thou/uL (130-400); RBC Distribution Width 14.7 % (11.5-14.5); Red Blood Cell (RBC) Count 3.42 mill/uL (4.20-5.40); White Blood Cell (WBC) Count 12.1 thou/uL (4.8-10.8)
[2022-02-10 06:10] LABS: Anion Gap 12 mmol/L (10-20); BUN (Urea Nitrogen) 22 mg/dL (9.8-20.1); Calc. Creatinine Clearance 108 mL/min (70-130); Calcium 8.2 mg/dL (7.8-10.44); Carbon Dioxide 22 mmol/L (22-29); Chloride 107 mmol/L (98-107); Glucose 154 mg/dL (70-105); Potassium 4.5 mmol/L (3.5-5.1); Sodium 136 mmol/L (136-145)
[2022-02-10] MEDS: Famotidine 40 MG/4 ML VIAL IV SCH ×2 (09:51→20:50)
[2022-02-10] MEDS: Lurasidone 20 MG TABLET PO SCH (09:53)
[2022-02-10] MEDS: Gabapentin 100 MG CAP PO SCH ×3 (09:54→20:49)
[2022-02-10] MEDS: Amlodipine 5 MG TAB PO SCH ×2 (10:25→20:49)
[2022-02-10] MEDS: Famotidine/PF 20 mg/2ml Vial SLOW IVP SCH (10:26)
[2022-02-10 16:26] LABS: #Lymphocytes 1.7 thou/uL (1.20-3.40); #Monocytes 0.7 thou/uL (0.11-0.59); #Neutrophils 7.5 thou/uL (1.40-6.50); %Basophils 0.3 % (0.0-1.0); %Eosinophils 0.3 % (0.0-10.0); %Lymphocytes 16.7 % (21.0-51.0); %Monocytes 6.9 % (0.0-10.0); %Neutrophils 75.7 % (42.0-75.0); Mean Corpuscular HGB CONC 31.8 g/dL (32.0-36.0); Mean Corpuscular Hemoglobin 28.3 pg (27.0-31.0); Mean Corpuscular Volume 88.9 fL (78.0-98.0); Mean Platelet Volume 8.2 fL (7.4-10.4); Platelet Count 160 thou/uL (130-400); RBC Distribution Width 14.7 % (11.5-14.5); Red Blood Cell (RBC) Count 3.19 mill/uL (4.20-5.40); White Blood Cell (WBC) Count 9.9 thou/uL (4.8-10.8)
[2022-02-10 17:44] LABS: Magnesium 1.8 mg/dL (1.6-2.6)
[2022-02-10 18:01] LABS: Phosphorus 1.6 mg/dL (2.3-4.7)
[2022-02-10] MEDS: Enoxaparin Sodium 40 MG/0.4 ML SYRINGE SC SCH (20:49)
[2022-02-11] MEDS: Ketorolac Tromethamine 30 MG/ML VIAL IVP SCH ×3 (06:02→18:20)
[2022-02-11 06:43] LABS: Band 4 % (5-11); Eosinophils 1 % (0-10); Hemoglobin 9.5 g/dL (12.0-16.0); Lymphocytes 21 % (21-51); MDiff Complete? YES; Mean Corpuscular Volume 87.6 fL (78.0-98.0); Monocytes 9 % (0-10); Neutrophil 65 % (42-75); Platelet Count 142 thou/uL (130-400); RBC Distribution Width 14.8 % (11.5-14.5); White Blood Cell (WBC) Count 8.2 thou/uL (4.8-10.8)
[2022-02-11 06:45] LABS: ALT (SGPT) 7 U/L (8-55); AST (SGOT) 15 U/L (5-34); Albumin 2.9 g/dL (3.5-5.0); Alkaline Phosphatase 77 U/L (40-110); Anion Gap 11 mmol/L (10-20); BUN (Urea Nitrogen) 6 mg/dL (9.8-20.1); Bilirubin, Total 0.3 mg/dL (0.2-1.2); Calc. Creatinine Clearance 137 mL/min (70-130); Calcium 8.7 mg/dL (7.8-10.44); Carbon Dioxide 24 mmol/L (22-29); Chloride 106 mmol/L (98-107); Globulin 2.8 g/dL (2.4-3.5); Glucose 122 mg/dL (70-105); Potassium 3.9 mmol/L (3.5-5.1); Protein, Total 5.7 g/dL (6.0-8.3); Sodium 137 mmol/L (136-145)
[2022-02-11] MEDS: Gabapentin 100 MG CAP PO SCH ×3 (08:46→20:11)
[2022-02-11] MEDS: Amlodipine 5 MG TAB PO SCH ×2 (08:46→20:10)
[2022-02-11] MEDS: Famotidine 40 MG/4 ML VIAL IV SCH ×2 (08:46→20:11)
[2022-02-11] MEDS: Lurasidone 20 MG TABLET PO SCH (08:47)
[2022-02-11] MEDS: D5 1/2 NS w/20 mEq KCL 1,000 ML IV SCH (08:54)
[2022-02-11] MEDS ORDERED: D5 1/2 NS w/20 mEq KCL 1,000 ML IV SCH (13:13)
[2022-02-11] MEDS ORDERED: Sodium Phosphate 30 MMOL in Sodium Chloride 0.9% 250 ML 250 ML IVPB SCH (14:00)
[2022-02-11] MEDS: Enoxaparin Sodium 40 MG/0.4 ML SYRINGE SC SCH (20:10)
[2022-02-12] MEDS: Amlodipine 5 MG TAB PO SCH ×2 (09:18→20:12)
[2022-02-12] MEDS: Lurasidone 20 MG TABLET PO SCH (09:18)
[2022-02-12] MEDS: Gabapentin 100 MG CAP PO SCH ×3 (09:19→20:12)
[2022-02-12] MEDS: Famotidine 40 MG/4 ML VIAL IV SCH (09:19)
[2022-02-12] MEDS ORDERED: Ibuprofen 600 MG TAB PO PRN (15:13)
[2022-02-12] MEDS: Acetaminophen 500 MG TAB PO SCH ×2 (17:43→23:14)
[2022-02-12] MEDS: traMADol HCl 50 MG TAB PO PRN ×2 (17:46→23:14)
[2022-02-12] MEDS: Enoxaparin Sodium 40 MG/0.4 ML SYRINGE SC SCH (20:12)
[2022-02-13] MEDS: traMADol HCl 50 MG TAB PO PRN ×2 (04:03→12:18)
[2022-02-13] MEDS: Acetaminophen 500 MG TAB PO SCH ×2 (05:25→12:16)
[2022-02-13] MEDS ORDERED: PARoxetine 20 MG TAB PO SCH (09:00)
[2022-02-13] MEDS: Lurasidone 20 MG TABLET PO SCH (09:53)
[2022-02-13] MEDS: Gabapentin 100 MG CAP PO SCH (09:53)
[2022-02-13] MEDS: Amlodipine 5 MG TAB PO SCH (09:53)
[2022-02-13 12:01] VITALS: BP 100/62; TEMP 98.5
== END 2022-02-13 15:57 | disposition home or self-care (01) | DRG 330 ==
LOC: SURG A 02-08 08:49
PROVIDERS: ADMIT Specialist; ATTEND Specialist
PROC: 0DBL0ZZ Excision of Transverse Colon, Open Approach (ICD-10-PCS; principal; 2022-02-08)
PROC: 0DB80ZZ Excision of Small Intestine, Open Approach (ICD-10-PCS; 2022-02-08)
PROC: 3E0T3BZ Introduction of Anesthetic Agent into Peripheral Nerves and Plexi, Percutaneous Approach (ICD-10-PCS; 2022-02-08)
DX: Z43.3 Encounter for attention to colostomy (principal); K56.7 Ileus, unspecified; K91.71 Accidental puncture and laceration of a digestive system organ or structure during a digestive system procedure; K57.92 Diverticulitis of intestine, part unspecified, without perforation or abscess without bleeding; Z20.822 Contact with and (suspected) exposure to COVID-19; Y83.8 Other surgical procedures as the cause of abnormal reaction of the patient, or of later complication, without mention of misadventure at the time of the procedure; E66.01 Morbid (severe) obesity due to excess calories; I10 Essential (primary) hypertension; R33.9 Retention of urine, unspecified; Z90.49 Acquired absence of other specified parts of digestive tract; Z68.31 Body mass index [BMI] 31.0-31.9, adult; Z79.899 Other long term (current) drug therapy; Z98.890 Other specified postprocedural states; Z88.6 Allergy status to analgesic agent; Z88.1 Allergy status to other antibiotic agents; Z88.5 Allergy status to narcotic agent; Z88.8 Allergy status to other drugs, medicaments and biological substances
CPT/HCPCS: 36415; 36416; 80048; 80053; 83735; 84100; 85025; 88307; A4649; C1776; J0694; J1100; J1170; J1650; J1885; J2250; J2370; J2405; J2704; J3010; J3480; J3490; J7030; J7050

== ENCOUNTER 2022-02-03 07:27 | Outpatient (CLI) | payer OTHER ==
[2022-02-03 09:03] LABS: #Basophils 0.1 10x3/uL (0.0-0.2); #Eosinphils 0.2 10x3/uL (0.0-0.5); #Monocytes 0.6 10x3/uL (0.0-1.1); #Neutrophils 2.8 10x3/uL (1.5-8.4); %Eosinophils 3.5 % (0.0-6.0); %Lymphocytes 39.9 % (18.0-47.0); %Monocytes 9.4 % (0.0-10.0); Hemoglobin 13.8 g/dL (12.0-15.5); Mean Corpuscular HGB CONC 31.2 g/dL (32.0-36.0); Mean Corpuscular Hemoglobin 26.2 pg (27.0-33.0); Mean Corpuscular Volume 83.9 fl (81.6-98.3); Mean Platelet Volume 10.4 fl (7.4-10.4); Platelet Count 270 10x3/uL (150-450); RBC Distribution Width 15.9 % (11.5-14.5); Red Blood Cell (RBC) Count 5.27 10x6/uL (3.90-5.03); White Blood Cell (WBC) Count 6.1 10x3/uL (3.5-10.5)
[2022-02-03 09:20] LABS: Anion Gap 14 mmol/L (10-20); BUN (Urea Nitrogen) 17 mg/dL (9.8-20.1); Calc. Creatinine Clearance 0 mL/min (70-130); Calcium 9.5 mg/dL (7.8-10.44); Carbon Dioxide 28 mmol/L (22-29); Chloride 103 mmol/L (98-107); Glucose 107 mg/dL (70-105); Potassium 4.1 mmol/L (3.5-5.1); Sodium 141 mmol/L (136-145)
[2022-02-03 13:15] LABS: Hemoglobin A1c 5.5 % (4.0-6.0)
[2022-02-03 21:28] LABS: SARS-CoV-2 PCR by NAA Not Detected (NotDetected)
== END 2022-02-03 07:28 | disposition home or self-care (01) ==
LOC: LABBT 07:27
PROVIDERS: ATTEND Specialist
DX: Z01.818 Encounter for other preprocedural examination (principal); K57.92 Diverticulitis of intestine, part unspecified, without perforation or abscess without bleeding; S31.109D Unspecified open wound of abdominal wall, unspecified quadrant without penetration into peritoneal cavity, subsequent encounter; Z93.3 Colostomy status; Z20.822 Contact with and (suspected) exposure to COVID-19
CPT/HCPCS: 80048; 83036; 85025; 93005; 93010; U0003; U0005

== ENCOUNTER 2022-06-11 23:58 | Emergency (ER) | payer OTHER | END 2022-06-12 03:51 | disposition home or self-care (01) | LOC: ERS 23:58 | DX: S20.211A Contusion of right front wall of thorax, initial encounter (principal); S20.212A Contusion of left front wall of thorax, initial encounter; I10 Essential (primary) hypertension; F17.290 Nicotine dependence, other tobacco product, uncomplicated; W07.XXXA Fall from chair, initial encounter | CPT/HCPCS: 71046 ==

== ENCOUNTER 2022-06-22 22:32 | Emergency (ER) | payer OTHER ==
[2022-06-23 00:01] LABS: #Basophils 0.1 thou/uL (0.0-0.2); #Eosinphils 0.2 thou/uL (0.0-0.7); #Lymphocytes 2.4 thou/uL (1.20-3.40); #Monocytes 0.7 thou/uL (0.11-0.59); #Neutrophils 5.4 thou/uL (1.40-6.50); %Basophils 0.7 % (0.0-1.0); %Eosinophils 1.8 % (0.0-10.0); %Lymphocytes 27.3 % (21.0-51.0); %Monocytes 7.9 % (0.0-10.0); %Neutrophils 62.3 % (42.0-75.0); Hemoglobin 14.1 g/dL (12.0-16.0); Mean Corpuscular HGB CONC 31.9 g/dL (32.0-36.0); Mean Corpuscular Hemoglobin 27.7 pg (27.0-31.0); Mean Corpuscular Volume 86.8 fL (78.0-98.0); Platelet Count 306 thou/uL (130-400); RBC Distribution Width 14.1 % (11.5-14.5); Red Blood Cell (RBC) Count 5.08 mill/uL (4.20-5.40); White Blood Cell (WBC) Count 8.6 thou/uL (4.8-10.8)
[2022-06-23 00:19] LABS: ALT (SGPT) 12 U/L (8-55); AST (SGOT) 16 U/L (5-34); Albumin 4.1 g/dL (3.5-5.0); Alkaline Phosphatase 148 U/L (40-110); Anion Gap 13 mmol/L (10-20); BUN (Urea Nitrogen) 23 mg/dL (9.8-20.1); Bilirubin, Total 0.2 mg/dL (0.2-1.2); Calc. Creatinine Clearance 0 mL/min (70-130); Calcium 9.8 mg/dL (7.8-10.44); Carbon Dioxide 30 mmol/L (22-29); Chloride 103 mmol/L (98-107); Estimated GFR 63; Globulin 3.6 g/dL (2.4-3.5); Glucose 108 mg/dL (70-105); Protein, Total 7.7 g/dL (6.0-8.3); Sodium 142 mmol/L (136-145)
[2022-06-23 04:49] LABS: Troponin I Less than 0.010 ng/mL (< 0.028)
[2022-06-23] MEDS ORDERED: Haloperidol Lactate 5 MG/ML VIAL ONE (05:13)
== END 2022-06-23 05:35 | disposition home or self-care (01) ==
LOC: ERS 22:32
DX: R07.2 Precordial pain (principal); I10 Essential (primary) hypertension; F17.290 Nicotine dependence, other tobacco product, uncomplicated
CPT/HCPCS: 36415; 71045; 80053; 82553; 84484; 85025; 93005; 96372; J1630

== ENCOUNTER 2022-09-14 09:08 | Outpatient (CLI) | payer OTHER | END 2022-09-14 09:09 | disposition home or self-care (01) | LOC: BICRAD 09:08 | PROVIDERS: ATTEND Physician Assistant Medical | DX: K56.41 Fecal impaction (principal); R19.4 Change in bowel habit; Z90.49 Acquired absence of other specified parts of digestive tract | CPT/HCPCS: 74018 ==

== ENCOUNTER 2024-07-17 09:50 | Outpatient (CLI) | payer BC, MEDICARE | END 2024-07-17 09:51 | disposition home or self-care (01) | LOC: BICMAMMO 09:50 | PROVIDERS: ATTEND Internal Medicine | DX: Z12.31 Encounter for screening mammogram for malignant neoplasm of breast (principal); Z80.3 Family history of malignant neoplasm of breast | CPT/HCPCS: 77063; 77067 ==